=== PATIENT | female | born 1940 | race Caucasian/White ===

== ENCOUNTER 2017-12-07 16:49 | Emergency (ER) | payer MEDICARE, MEDICAID ==
--- NOTE | 2017-12-07 17:41 | UC ---
Abdominal Pain Female HPI - HPI Summary HPI Summary: This nice Bosnian lady comes to the urgent care today with her daughter. [employer] i-pad was used, for patient's confidentiality, the daughter understands the good amount of Turkish but she is not 100% with medical terminology. Patient reports night sweats and fatigue 7-10 pound weight loss and insomnia. Patient reports symptoms are worse last night than they had been in the past. Patient has seen her primary care doctor for this in the past, at [place] and no definitive diagnosis was made per the daughter via the plant buyer. - History of Current Complaint Chief Complaint: UCAbdominalPain Stated Complaint: ABDOMINAL COMPLAINT Time Seen by Provider: 12/07/17 17:30 Hx Obtained From: Patient, Family/Manager Home, Employment Coordinator ?: No Onset/Duration: Gradual Onset, Still Present, Worse Since - Last night Timing: Constant Pain Intensity: 0 Aggravating Factor(s): Nothing Alleviating Factor(s): Nothing Associated Signs and Symptoms: Positive: Negative Allergies/Adverse Reactions: Allergies Allergy/AdvReac Type Severity Reaction Status Date / Time No Known Allergies Allergy Verified 12/07/17 17:10 Home Medications: Home Medications Amlodipine Besylate [Norvasc] 10 mg PO DAILY 12/07/17 [History Confirmed ] Aspirin [Aspirin EC] 81 mg PO DAILY 12/07/17 [History Confirmed 12/07/17] Atenolol 25 mg PO DAILY 12/07/17 [History Confirmed 12/07/17] Brimonid/Timolol 0.2/0.5%(NF) [Combigan 0.2/0.5% (NF)] 1 rayne OP DAILY 12/07/17 [ History Confirmed 12/07/17] Calcium Carbonate [Calcium] 500 mg PO 12/07/17 [History] Hydrocodone/Acetaminophen [Hydrocodone Bitartrate/AC] 1 tab PO Q6H PRN 12/07/17 [History Confirmed 12/07/17] Lisinopril 40 mg PO DAILY 12/07/17 [History Confirmed 12/07/17] Multivitamin [Multivitamins] 1 cap PO DAILY 12/07/17 [History Confirmed 12/07/17 ] Omeprazole CAP* [Prilosec CAP* 20 MG] 20 mg PO DAILY 12/07/17 [History Confirmed 12/07/17] Rosuvastatin (NF) [Crestor (NF)] 20 mg PO QPM 12/07/17 [History Confirmed ] Jenkins Eye Drops 1 drop .SEE ORDER DAILY 12/07/17 [History] PMH/Surg Hx/FS Hx/Imm Hx Previously Healthy: No - Sciatica Endocrine History: Dyslipidemia Cardiovascular History: Hypertension GI/ History: Gastroesophageal Reflux - Surgical History Surgical History: None - Family History Known Family History: Positive: None - Social History Occupation: Retired Lives: With Family Alcohol Use: None Substance Use Type: None Smoking Status (MU): Never Smoked Tobacco Household Exposure Type: Cigarettes - Immunization History Most Recent Influenza Vaccination: season Review of Systems Constitutional: Chills, Fatigue Skin: Negative Eyes: Negative ENT: Negative Respiratory: Negative Cardiovascular: Negative Gastrointestinal: Negative Genitourinary: Negative Motor: Negative Neurovascular: Negative Musculoskeletal: Negative Neurological: Negative Psychological: Negative Is Patient Immunocompromised?: No All Other Systems Reviewed And Are Negative: Yes Physical Exam Triage Information Reviewed: Yes Appearance: Well-Appearing, No Pain Distress, Well-Nourished Vital Signs: Initial Vital Signs Temp 98.0 F 12/07/17 17:04 Pulse 70 12/07/17 17:04 Resp 18 12/07/17 17:04 BP 152/78 12/07/17 17:04 Pulse Ox 99 12/07/17 17:04 Vital Signs Reviewed: Yes Eye Exam: Normal Eyes: Positive: Conjunctiva Clear ENT Exam: Normal ENT: Positive: Normal ENT inspection, Hearing grossly normal, Pharynx normal, TMs normal, Uvula midline. Negative: Nasal congestion, Trismus, Muffled voice, Hoarse voice, Dental tenderness, Sinus tenderness Dental Exam: Normal Neck exam: Normal Neck: Positive: Supple, Nontender, No Lymphadenopathy Respiratory Exam: Normal Respiratory: Positive: Chest non-tender, Lungs clear, Normal breath sounds, No respiratory distress, No accessory muscle use Cardiovascular Exam: Normal Cardiovascular: Positive: RRR, No Murmur, Pulses Normal, Brisk Capillary Refill Abdominal Exam: Normal Abdomen Description: Positive: Nontender, No Organomegaly, Soft. Negative: CVA Tenderness (R), CVA Tenderness (L) Bowel Sounds: Positive: Present Musculoskeletal Exam: Normal Musculoskeletal: Positive: Strength Intact, ROM Intact, No Edema Neurological Exam: Normal Neurological: Positive: Alert, Muscle Tone Normal Psychological Exam: Normal Psychological: Positive: Normal Response To Family Skin Exam: Normal Diagnostics - Radiology No standard instances Radiology Interpretation Completed By: Radiologist - Patient Name: ROBBIE LANZA Medical Record#: [id number] Ordering Physician: Vanessa Bowens NP Acct.#: [id number] : 1940 Age: 77 Sex: F Location: [facility] Exam Date: 12/07/171755 ADM Status: REG ER Order Information: CHEST PA & LAT 2 VWS Accession Number: [id number] CPT: 91615 HISTORY: Weight loss, night sweats COMPARISONS: None VIEWS: 4: Frontal dual-energy and lateral views of the chest. FINDINGS: CARDIOMEDIASTINAL SILHOUETTE: The cardiomediastinal silhouette is normal. VICK: The vick are normal. PLEURA: The costophrenic angles are sharp. No pleural abnormalities are noted. LUNG PARENCHYMA: The lungs are clear. ABDOMEN: The upper abdomen is clear. There is no subphrenic gas. BONES AND SOFT TISSUES: Mild degenerative changes are noted. OTHER: None. IMPRESSION: NO ACTIVE CARDIOPULMONARY DISEASE. <Electronically signed by Kai Randolph MD in [place]> 12/07/171835 Dictated By: Kai Randolph MD Dictated Date/Time: 1835 Transcribed Date/Time: 12/07/171835 Copy to: CC:Vanessa Bowens NP; Alvina De La O MD; Aden Werner MD Imaging - [facility] Imaging - [facility] [address] [place] [address] ph [phone]) ph [phone]) ph [phone]) 1 of 1 - EKG Cardiac Rate: NL Cardiac Rhythm: Sinus: Normal Ectopy: None ST Segment: Normal Abd Pain Female Course/Dx - Course Course Of Treatment: Reviewed options with the patient. Suggested she go home rest follow with Dr. enedelia Reyes up in the morning. Patient feels that she cannot tolerate another sleepless night wishes to go to the emergency department patient will be going to the emergency department by private car with her daughter driving for further assessment and evaluation - Differential Dx/Diagnosis Provider Diagnoses: Weight loss fatigue night sweats, Discharge - Sign-Out/Discharge Documenting (check all that apply): Discharge/Admit/Transfer - Discharge Plan Condition: Stable Disposition: HOME Patient Education Materials: Insomnia (ED), Fatigue (ED) Referrals: Alvina De La O MD [Primary Care Provider] - 1 Day - Billing Disposition and Condition Condition: STABLE Disposition: HOME
--- NOTE | 2017-12-07 18:39 | RAD ---
HISTORY: Weight loss, night sweats COMPARISONS: None VIEWS: 4: Frontal dual-energy and lateral views of the chest. FINDINGS: CARDIOMEDIASTINAL SILHOUETTE: The cardiomediastinal silhouette is normal. HELEN: The helen are normal. PLEURA: The costophrenic angles are sharp. No pleural abnormalities are noted. LUNG PARENCHYMA: The lungs are clear. ABDOMEN: The upper abdomen is clear. There is no subphrenic gas. BONES AND SOFT TISSUES: Mild degenerative changes are noted. OTHER: None. IMPRESSION: NO ACTIVE CARDIOPULMONARY DISEASE.
[2017-12-07 19:10] VITALS: BP 163/83
== END 2017-12-07 19:10 | disposition home or self-care (01) ==
LOC: UCEAST 16:49
DX: R63.4 Abnormal weight loss (principal); R53.83 Other fatigue; R61 Generalized hyperhidrosis; I10 Essential (primary) hypertension; K21.9 Gastro-esophageal reflux disease without esophagitis
CPT/HCPCS: 71046; 81003; 87086; 93005; 99212; G0463

== ENCOUNTER 2017-12-07 19:45 | Emergency (ER) | payer MEDICARE, MEDICAID ==
[2017-12-07] MEDS ORDERED: NS 0.9% 1000 ML* 1,000 ML IV ONE (22:19)
[2017-12-07 22:38] LABS: ABS Basophils 0.1 10^3/ul (0-0.2); ABS Eosinophils 0.2 10^3/ul (0-0.6); ABS Lymphocytes 3.1 10^3/ul (1.0-4.8); ABS Monocytes 0.6 10^3/ul (0-0.8); ABS Neutrophils 3.8 10^3/ul (1.5-7.7); ABS Nucleated RBC 0 10^3/ul; Hematocrit 39 % (35-47); Hemoglobin 12.9 g/dl (12.0-16.0); Lymphocyte % 40.3 % (25-47); Mean Corpuscular HGB Conc 33 g/dl (31-36); Mean Corpuscular Hemoglobin 30 pg (27-31); Mean Corpuscular Volume 90 fL (80-97); Mean Platelet Volume 8.5 um3 (7.4-10.4); Nucleated Red Blood Cells % 0; Platelet Count 221 10^3/ul (150-450); Red Blood Count 4.37 10^6/ul (4.0-5.4); Red Cell Distribution Width 14 % (10.5-15); White Blood Count 7.7 10^3/ul (3.5-10.8)
[2017-12-07 22:56] LABS: EGFR Non-African American 59.8 (>60)
[2017-12-07] MEDS ORDERED: Iodixanol* (CONTRAST) 320 MG/ML 100 ML SDV IV ONE (23:39)
[2017-12-08 00:44] LABS: INR 0.97 (0.77-1.02)
[2017-12-08 00:46] LABS: Urine Appearance Clear; Urine Blood Negative (Negative); Urine Color Straw; Urine Ketones Negative (Negative); Urine Protein Negative (Negative); Urine Specific Gravity 1.006 (1.010-1.030); Urine Urobilinogen Negative (Negative)
--- NOTE | 2017-12-08 01:35 | ED ---
Colby Ellington Tiffany, scribelizabeth for Morris Martin MD on 12/07/17 at 2201 . Complex/Multi-Sys Presentation - HPI Summary HPI Summary: 77 [facility] of nighttime sweats since 3 months ago, worse since 10 days ago. Pt's daughter delivers HPI because pt does not speak Kyrgyz. Symptoms aggravated and alleviated by nothing. Reports decreased appetite, weakness, recent weight loss (6 lbs in 1 month). Denies vomiting, cough, fever. Pt has been to her PCP at [place] for these symptoms, who has done bloodwork, CXR, PPD test (negative in Jul 2017). - History Of Current Complaint Chief Complaint: EDGeneral Time Seen by Provider: 12/07/17 21:34 Hx Obtained From: Family/Engrosser - Daughter Onset/Duration: Lasting Weeks - 3 months, Still Present, Worse Since - 10 days Aggravating Factor(s): Nothing Alleviating Factor(s): Nothing Associated Signs And Symptoms: Positive: Other - decreased appetite, weakness, recent weight loss (6 lbs in 1 month); NEGATIVE: vomiting, cough, fever - Allergies/Home Medications Allergies/Adverse Reactions: Allergies Allergy/AdvReac Type Severity Reaction Status Date / Time No Known Allergies Allergy Verified 12/07/17 21:48 Home Medications: Home Medications Calcium Carbonate TAB* 1,250 mg PO DAILY 12/07/17 [History Confirmed 12/07/17] PMH/Surg Hx/FS Hx/Imm Hx Previously Healthy: No Endocrine/Hematology History: Denies: Hx Diabetes, Hx Thyroid Disease Cardiovascular History: Reports: Hx Hypertension Respiratory History: Denies: Hx Asthma, Hx Chronic Obstructive Pulmonary Disease (COPD) GI History: Denies: Hx Ulcer - Surgical History Surgery Procedure, Year, and Place: None Infectious Disease History: No Infectious Disease History: Denies: Hx Clostridium Difficile, Hx Hepatitis, Hx Human Immunodeficiency Virus (HIV), Hx of Known/Suspected MRSA, Hx Shingles, Hx Tuberculosis, Hx Known/ Suspected VRE, Hx Known/Suspected VRSA, History Other Infectious Disease, Traveled Outside the [place] in Last 30 Days - Family History Known Family History: Positive: Other - Reviewed and non-contributory - Social History Alcohol Use: None Hx Substance Use: No Substance Use Type: Reports: None Hx Tobacco Use: No Smoking Status (MU): Never Smoked Tobacco Review of Systems Positive: Skin Diaphoresis - At night. Negative: Fever Negative: Cough Positive: Abdominal Pain - Lower right, Other - Decreased appetite, recent weight loss. Negative: Vomiting Positive: Weakness All Other Systems Reviewed And Are Negative: Yes Physical Exam - Summary Physical Exam Summary: VITAL SIGNS: Reviewed. GENERAL: Patient is a well-developed and nourished female who is lying comfortable in the stretcher. Patient is not in any acute respiratory distress. HEAD AND FACE: No signs of trauma. No ecchymosis, hematomas or skull depressions. No sinus tenderness. EYES: PERRLA, EOMI x 2, No injected conjunctiva, no nystagmus. EARS: Hearing grossly intact. Ear canals and tympanic membranes are within normal limits. MOUTH: Oropharynx within normal limits. NECK: Supple, trachea is midline, no adenopathy, no JVD, no carotid bruit, no c- spine tenderness, neck with full ROM. CHEST: Symmetric, no tenderness at palpation LUNGS: Clear to auscultation bilaterally. No wheezing or crackles. CVS: Regular rate and rhythm, S1 and S2 present, no murmurs or gallops appreciated. ABDOMEN: Soft, non-tender. No signs of distention. No rebound no guarding, and no masses palpated. Bowel sounds are normal. EXTREMITIES: FROM in all major joints, no edema, no cyanosis or clubbing. NEURO: Alert and oriented x 3. No acute neurological deficits. Speech is normal and follows commands. SKIN: Dry and warm Triage Information Reviewed: Yes Vital Signs On Initial Exam: Initial Vitals Temp Pulse Resp BP Pulse Ox 97.6 F 62 20 165/86 96 12/07/17 19:51 12/07/17 19:51 12/07/17 19:51 12/07/17 19:51 12/07/17 19:51 Vital Signs Reviewed: Yes Diagnostics - Vital Signs Vital Signs Temp Pulse Resp BP Pulse Ox 12/07/17 19:51 97.6 F 62 20 165/86 96 - Laboratory Result Diagrams: 12/07/17 22:27 12/07/17 22:27 Lab Statement: Any lab studies that have been ordered have been reviewed, and results considered in the medical decision making process. - CT Chest/Abd/Pel CT Interpretation Completed By: Radiologist - No localizing signs for acute pathology. Mild bilateral renal scarring. Early porcelain gallbladder. ED physician has reviewed this report. - EKG 22:47 Cardiac Rate: NL - 70 BPM EKG Rhythm: Sinus Rhythm EKG Interpretation: Normal axis. Normal interval. No ischemic changes Re-Evaluation - Re-Evaluation First Eval Re-Evaluation Time: 00:04 Change: Improved Comment: Pt informed of imaging results, and is feeling better to be discharged. Complex Multi-Symp Course/Dx Course Of Treatment: 77 y/o F referred from Urgent Care to [facility] complains of nighttime sweats since 3 months ago, worse since 10 days ago. Imaging, bloodwork , UA obtained. Pt will be discharged with followup from primary care provider. - Diagnoses Provider Diagnoses: Weakness Discharge - Sign-Out/Discharge Documenting (check all that apply): Discharge/Admit/Transfer - Discharge Plan Condition: Stable Disposition: HOME Patient Education Materials: Weakness (ED) Referrals: Alvina De La O MD [Primary Care Provider] - 2 Days Additional Instructions: Follow up with your primary care provider in 1-2 days. Return to the Emergency Department for any new or worsening symptoms. The documentation as recorded by the Colby lagunas Tiffany accurately reflects the service I personally performed and the decisions made by , Morris Martin MD.
[2017-12-08 01:56] VITALS: BP 129/72
--- NOTE | 2017-12-08 08:02 | RAD ---
INDICATION: Fever. COMPARISON: Comparison is made with a prior chest x-ray study from December 07, 2017. TECHNIQUE: A CT scan of the chest, abdomen and pelvis was performed with intravenous and without oral contrast following intravenous injection of 75 ml of Visipaque 320 nonionic contrast. Contiguous axial sections were obtained from the lung apices through the symphysis pubis. Images were reconstructed in the coronal and sagittal planes. FINDINGS: There is mild dependent bilateral lower lobe infiltrates most consistent with atelectasis. The lungs are otherwise clear. No pleural effusion is seen. No significant enlarged mediastinal or hilar lymph nodes are seen. There are coronary artery calcifications. The heart is within normal limits in size. No pericardial effusion is present. The thoracic aorta is normal in caliber. There is mild to moderate calcific plaque present. There is homogeneous opacification of the aorta. No dissection is present. The liver and spleen are normal in size. There are couple small hepatic calcifications possibly representing granulomas. No other focal abnormality is seen. No calcified gallstones are seen noted. There is faint calcification within the gallbladder wall suggestive of an early porcelain gallbladder. There is diffuse fatty infiltration of the pancreas. The adrenal glands are normal in size. There is mild bilateral renal cortical thinning and scarring. No hydronephrosis is seen. There are several small subcentimeter renal cysts present. The aorta is normal in caliber and there is moderate calcific plaque present. No significant enlarged retroperitoneal lymph nodes are seen. There is a small hiatal hernia. The stomach, small and large bowel appear nondistended. The appendix appears to be within normal limits. There are scattered diverticuli within the colon. There is no evidence for diverticulitis or colitis. There is a small umbilical hernia containing fat. The uterus is anteverted and normal in size. No free intraperitoneal air or fluid is seen. No abscess is seen. There is a mild chronic appearing compression fracture of the T12 vertebral body. No other focal osseous abnormalities are seen. IMPRESSION: 1. NO EVIDENCE FOR ACUTE FINDING. 2. MILD BILATERAL RENAL SCARRING. 3. EARLY PORCELAIN GALLBLADDER.
== END 2017-12-08 01:50 | disposition home or self-care (01) ==
LOC: ED 19:45
DX: R53.1 Weakness (principal); K82.8 Other specified diseases of gallbladder; N28.89 Other specified disorders of kidney and ureter; N28.1 Cyst of kidney, acquired; K44.9 Diaphragmatic hernia without obstruction or gangrene; K57.30 Diverticulosis of large intestine without perforation or abscess without bleeding; R91.8 Other nonspecific abnormal finding of lung field; R63.4 Abnormal weight loss; R53.83 Other fatigue; R61 Generalized hyperhidrosis; I10 Essential (primary) hypertension; K21.9 Gastro-esophageal reflux disease without esophagitis
CPT/HCPCS: 36415; 71260; 74177; 80053; 81003; 84443; 84484; 85025; 85610; 85730; 86140; 87086; 93005; 96360; 99284; Q9967

== ENCOUNTER 2017-12-26 12:26 | Emergency (ER) | payer MEDICARE, MEDICAID ==
[2017-12-26] MEDS ORDERED: NS 0.9% 1000 ML* 1,000 ML IV ONE (14:11)
[2017-12-26 14:29] LABS: ABS Basophils 0.1 10^3/ul (0-0.2); ABS Eosinophils 0 10^3/ul (0-0.6); ABS Lymphocytes 2.1 10^3/ul (1.0-4.8); ABS Monocytes 0.5 10^3/ul (0-0.8); ABS Neutrophils 6.4 10^3/ul (1.5-7.7); ABS Nucleated RBC 0 10^3/ul; Eosinophil % 0.2 % (0-6); Hematocrit 39 % (35-47); Hemoglobin 13.1 g/dl (12.0-16.0); Lymphocyte % 22.7 % (25-47); Mean Corpuscular HGB Conc 34 g/dl (31-36); Mean Corpuscular Hemoglobin 30 pg (27-31); Mean Corpuscular Volume 89 fL (80-97); Mean Platelet Volume 8.3 um3 (7.4-10.4); Nucleated Red Blood Cells % 0; Platelet Count 257 10^3/ul (150-450); Red Blood Count 4.35 10^6/ul (4.00-5.40); Red Cell Distribution Width 14 % (10.5-15); White Blood Count 9.1 10^3/ul (3.5-10.8)
[2017-12-26 14:44] LABS: EGFR Non-African American 61.3 (>60)
[2017-12-26 15:31] LABS: Urine Appearance Clear; Urine Blood Negative (Negative); Urine Color Yellow; Urine Ketones Negative (Negative); Urine Protein Negative (Negative); Urine Red Blood Cell Trace(0-2/hpf) (Absent); Urine Specific Gravity 1.006 (1.010-1.030); Urine Urobilinogen Negative (Negative); Urine White Blood Cell Trace(0-5/hpf) (Absent)
[2017-12-26 17:04] VITALS: BP 146/74
--- NOTE | 2017-12-26 17:46 | ED ---
Adán Ellington Tenzin, scribed for Shane Adamson MD on 12/26/17 at 1410 . Abdominal Pain/Female - HPI Summary HPI Summary: Pt is a 77 years old female presenting to the ED complaining of severe pain in right upper abdomen last night. Pt rates the pain at 4/10 in severity and describes it as sharp pain. No radiation of pain was noted. She is also complaining of feeling nauseous, malaise and bad sweats with intermittent hot flashes lasting about 10 mins for the last few days. No aggravating and alleviating factors were noted. Pt was noted to have loss of appetite and trouble sleeping over the last two days. Pt took Vicodin today at 10:00 for the pain. She was here in the ED for the similar complaints on Dec 07 2017. - History of Current Complaint Chief Complaint: EDAbdPain Stated Complaint: ABD PAIN Time Seen by Provider: 12/26/17 13:53 Hx Obtained From: Patient, Family/Analytics Intern - daughter was the barrel charrer helper. Onset/Duration: Lasting Days - last few days. Timing: Intermittent Episode Lasting - 10 mins. Severity Initially: Moderate Severity Currently: Moderate Pain Intensity: 4 Pain Scale Used: 0-10 Numeric Location: Discrete At: RUQ Radiates: No Character: Sharp Aggravating Factor(s): Nothing Alleviating Factor(s): Nothing Associated Signs and Symptoms: Positive: Decreased Appetite, Nausea, Other: - Malaise, hot flashes and night sweats intermittently, trouble sleeping. Allergies/Adverse Reactions: Allergies Allergy/AdvReac Type Severity Reaction Status Date / Time No Known Allergies Allergy Verified 12/26/17 12:36 Home Medications: Home Medications ALPRAZolam TAB* [Xanax TAB*] 0.25 mg PO Q6H PRN 12/26/17 [History Confirmed ] Alendronate (NF) [Fosamax (NF)] 70 mg PO WEEKLY 12/26/17 [History Confirmed ] Aspirin EC TAB* [Ecotrin EC Low Dose 81 MG*] 81 mg PO DAILY 12/26/17 [History Confirmed 12/26/17] Atenolol TAB* [Tenormin TAB* 25 MG] 25 mg PO DAILY 12/26/17 [History Confirmed 12/26/17] Cholecalciferol TAB* [Vitamin D TAB*] 1,000 unit PO DAILY 12/26/17 [History Confirmed 12/26/17] Gabapentin CAP(*) [Neurontin 300 CAP(*)] 300 mg PO TID 12/26/17 [History Confirmed 12/26/17] HYDROcodone/ACETAMIN 5-325 MG* [[place] 5-325 TAB*] 1 tab PO Q6H PRN 12/26/17 [ History Confirmed 12/26/17] Lisinopril TAB* [Prinivil TAB*] 40 mg PO DAILY 12/26/17 [History Confirmed 12/26] Multivitamins/Minerals TAB* [Theragran/minerals TAB*] 1 tab PO DAILY 12/26/17 [ History Confirmed 12/26/17] Omeprazole CAP* [Prilosec CAP* 20 MG] 20 mg PO DAILY 12/26/17 [History Confirmed 12/26/17] Rosuvastatin (NF) [Crestor (NF)] 20 mg PO DAILY 12/26/17 [History Confirmed ] Sertraline* [Zoloft*] 50 mg PO DAILY 12/26/17 [History Confirmed 12/26/17] amLODIPine TAB* [Norvasc 5 mg TAB*] 10 mg PO DAILY 12/26/17 [History Confirmed 12/26/17] PMH/Surg Hx/FS Hx/Imm Hx Endocrine/Hematology History: Denies: Hx Diabetes, Hx Thyroid Disease Cardiovascular History: Reports: Hx Hypertension Respiratory History: Denies: Hx Asthma, Hx Chronic Obstructive Pulmonary Disease (COPD) GI History: Denies: Hx Ulcer History: Denies: Hx Renal Disease - Surgical History Surgery Procedure, Year, and Place: None Infectious Disease History: No Infectious Disease History: Denies: Hx Clostridium Difficile, Hx Hepatitis, Hx Human Immunodeficiency Virus (HIV), Hx of Known/Suspected MRSA, Hx Shingles, Hx Tuberculosis, Hx Known/ Suspected VRE, Hx Known/Suspected VRSA, History Other Infectious Disease, Traveled Outside the [place] in Last 30 Days - Family History Known Family History: Positive: None, Other - Reviewed and non-contributory - Social History Alcohol Use: None Hx Substance Use: No Substance Use Type: Reports: None Hx Tobacco Use: No Smoking Status (MU): Never Smoked Tobacco Review of Systems Positive: Other - Hot flashes and night sweats intermittently, Malaise. Positive: Abdominal Pain - RUQ, Nausea All Other Systems Reviewed And Are Negative: Yes Physical Exam - Summary Physical Exam Summary: Appearance: The patient is well-nourished in no acute distress and in no acute pain. Skin: The skin is warm and dry and skin color reflects adequate perfusion. HEENT: The head is normocephalic and atraumatic. The pupils are equal and reactive. The conjunctivae are clear and without drainage. Nares are patent and without drainage. Mouth reveals moist mucous membranes and the throat is without erythema and exudate. The external ears are intact. The ear canals are patent and without drainage. The tympanic membranes are intact. Neck: the neck is supple with full range of motion and non-tender. There are no carotid bruits. There is no neck vein distension. Respiratory: Chest is non-tender. Lungs are clear to auscultation and breath sounds are symmetrical and equal. Cardiovascular: Heart is regular rate and rhythm. There is no murmur or rub auscultated. There is no peripheral edema and pulses are symmetrical and equal. Abdomen: The abdomen is non-tender. There are normal bowel sounds heard in all four quadrants and there is no organomegaly palpated. Musculoskeletal: There is no back tenderness noted. Extremities are non-tender with full range of motion. There is good capillary refill. There is no peripheral edema or calf tenderness elicited. Neurological: Patient is alert and oriented to person, place and time. The patient has symmetrical motor strength in all four extremities. Cranial nerves are grossly intact. Deep tendon reflexes are symmetrical and equal in all four extremities. Psychiatric: The patient has an appropriate affect and does not exhibit any anxiety or depression. Triage Information Reviewed: Yes Vital Signs On Initial Exam: Initial Vitals Temp Pulse Resp BP Pulse Ox 98.4 F 76 15 134/78 95 12/26/17 12:29 12/26/17 12:29 12/26/17 12:29 12/26/17 12:29 12/26/17 12:29 Vital Signs Reviewed: Yes Appearance: Positive: Ill-Appearing Diagnostics - Vital Signs Vital Signs Temp Pulse Resp BP Pulse Ox 12/26/17 12:29 98.4 F 76 15 134/78 95 - Laboratory Lab Results: Lab Results 12/26/17 12/26/17 12/26/17 Range/Units 14:19 14:20 14:20 WBC 9.1 (3.5-10.8) 10^3/ul RBC 4.35 (4.00-5.40) 10^6/ul Hgb 13.1 (12.0-16.0) g/dl Hct 39 (35-47) % MCV 89 (80-97) fL MCH 30 (27-31) pg MCHC 34 (31-36) g/dl RDW 14 (10.5-15) % Plt Count 257 (150-450) 10^3/ul MPV 8.3 (7.4-10.4) um3 Neut % (Auto) 70.4 (38-83) % Lymph % (Auto) 22.7 L (25-47) % [place] % (Auto) 5.9 (0-7) % Eos % (Auto) 0.2 (0-6) % Baso % (Auto) 0.8 (0-2) % Absolute Neuts (auto) 6.4 (1.5-7.7) 10^3/ul Absolute Lymphs (auto) 2.1 (1.0-4.8) 10^3/ul Absolute Monos (auto) 0.5 (0-0.8) 10^3/ul Absolute Eos (auto) 0 (0-0.6) 10^3/ul Absolute Basos (auto) 0.1 (0-0.2) 10^3/ul Absolute Nucleated RBC 0 10^3/ul Nucleated RBC % 0 Sodium 138 (135-145) mmol/L Potassium 3.8 (3.5-5.0) mmol/L Chloride 106 (101-111) mmol/L Carbon Dioxide 24 (22-32) mmol/L Anion Gap 8 (2-11) mmol/L BUN 18 (6-24) mg/dL Creatinine 0.89 (0.51-0.95) mg/dL Est GFR ( Amer) 78.9 (>60) Est GFR (Non-Af Amer) 61.3 (>60) BUN/Creatinine Ratio 20.2 H (8-20) Glucose 157 H (70-100) mg/dL Lactic Acid 1.3 (0.5-2.0) mmol/L Calcium 9.6 (8.6-10.3) mg/dL Total Bilirubin 0.40 (0.2-1.0) mg/dL AST 21 (13-39) U/L ALT 18 (7-52) U/L Alkaline Phosphatase 50 (34-104) U/L C-Reactive Protein 2.54 (< 5.00) mg/L Total Protein 6.7 (6.4-8.9) g/dL Albumin 4.1 (3.2-5.2) g/dL Globulin 2.6 (2-4) g/dL Albumin/Globulin Ratio 1.6 (1-3) Lipase 11 (11.0-82.0) U/L Urine Color Urine Appearance Urine pH (5-9) Ur Specific [place] (1.010-1.030) Urine Protein (Negative) Urine Ketones (Negative) Urine Blood (Negative) Urine Nitrate (Negative) Urine Bilirubin (Negative) Urine Urobilinogen (Negative) Ur Leukocyte Esterase (Negative) Urine WBC (Auto) (Absent) Urine RBC (Auto) (Absent) Ur Squamous Epith Cells (Absent) Urine Bacteria (Absent) Urine Glucose (Negative) 12/26/17 Range/Units 15:10 WBC (3.5-10.8) 10^3/ul RBC (4.00-5.40) 10^6/ul Hgb (12.0-16.0) g/dl Hct (35-47) % MCV (80-97) fL MCH (27-31) pg MCHC (31-36) g/dl RDW (10.5-15) % Plt Count (150-450) 10^3/ul MPV (7.4-10.4) um3 Neut % (Auto) (38-83) % Lymph % (Auto) (25-47) % [place] % (Auto) (0-7) % Eos % (Auto) (0-6) % Baso % (Auto) (0-2) % Absolute Neuts (auto) (1.5-7.7) 10^3/ul Absolute Lymphs (auto) (1.0-4.8) 10^3/ul Absolute Monos (auto) (0-0.8) 10^3/ul Absolute Eos (auto) (0-0.6) 10^3/ul Absolute Basos (auto) (0-0.2) 10^3/ul Absolute Nucleated RBC 10^3/ul Nucleated RBC % Sodium (135-145) mmol/L Potassium (3.5-5.0) mmol/L Chloride (101-111) mmol/L Carbon Dioxide (22-32) mmol/L Anion Gap (2-11) mmol/L BUN (6-24) mg/dL Creatinine (0.51-0.95) mg/dL Est GFR ( Amer) (>60) Est GFR (Non-Af Amer) (>60) BUN/Creatinine Ratio (8-20) Glucose (70-100) mg/dL Lactic Acid (0.5-2.0) mmol/L Calcium (8.6-10.3) mg/dL Total Bilirubin (0.2-1.0) mg/dL AST (13-39) U/L ALT (7-52) U/L Alkaline Phosphatase (34-104) U/L C-Reactive Protein (< 5.00) mg/L Total Protein (6.4-8.9) g/dL Albumin (3.2-5.2) g/dL Globulin (2-4) g/dL Albumin/Globulin Ratio (1-3) Lipase (11.0-82.0) U/L Urine Color Yellow Urine Appearance Clear Urine pH 6.0 (5-9) Ur Specific [place] 1.006 L (1.010-1.030) Urine Protein Negative (Negative) Urine Ketones Negative (Negative) Urine Blood Negative (Negative) Urine Nitrate Negative (Negative) Urine Bilirubin Negative (Negative) Urine Urobilinogen Negative (Negative) Ur Leukocyte Esterase 1+ A (Negative) Urine WBC (Auto) Trace(0-5/hpf) (Absent) Urine RBC (Auto) Trace(0-2/hpf) (Absent) Ur Squamous Epith Cells Present A (Absent) Urine Bacteria Absent (Absent) Urine Glucose Negative (Negative) Result Diagrams: 12/26/17 14:20 12/26/17 14:19 Lab Statement: Any lab studies that have been ordered have been reviewed, and results considered in the medical decision making process. Abdominal Pain Fem Course/Dx - Course Course Of Treatment: Ms. Rodriguez was brought to the emergency department by her daughter who translates for her. She was here in the emergency department a week or so ago and got off CT scan of her chest abdomen and pelvis. Since that time she has been having episodes of sudden diaphoresis and nausea and which is occasionally accompanied by a sharp right upper quadrant pain. She is not experiencing the symptoms at this time. Her exam was unremarkable. Labs were obtained and were within normal limits. 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 I recommended follow-up with surgery for definitive treatment. In the meantime I recommended the use of tramadol for her pain. - Diagnoses Provider Diagnoses: Biliary colic Discharge - Sign-Out/Discharge Documenting (check all that apply): Discharge/Admit/Transfer - discharge - Discharge Plan Condition: Stable Disposition: HOME Prescriptions: traMADol TAB* [Ultram*] 50 mg PO Q6HR PRN #20 tab MDD 4 PRN Reason: Pain Patient Education Materials: Biliary Colic (ED) Referrals: Alvina De La O MD [Primary Care Provider] - Ricardo Thomas MD [Medical Doctor] - 3 Days Additional Instructions: Follow up with Dr. Ricardo Thomas, Surgeon in three days. Return to the emergency department for any new or worsening symptoms. - Billing Disposition and Condition Condition: STABLE Disposition: Home The documentation as recorded by the Adán lagunas Tenzin accurately reflects the service I personally performed and the decisions made by me, Shane Adamson MD.
== END 2017-12-26 17:05 | disposition home or self-care (01) ==
LOC: ED 12:26
DX: K80.50 Calculus of bile duct without cholangitis or cholecystitis without obstruction (principal); I10 Essential (primary) hypertension; Z79.82 Long term (current) use of aspirin
CPT/HCPCS: 36415; 80053; 81003; 81015; 83605; 83690; 85025; 86140; 87086; 96360; 99283

== ENCOUNTER 2018-10-06 09:27 | Emergency (ER) | payer MEDICARE, MEDICAID ==
--- NOTE | 2018-10-06 10:24 | UC ---
Abdominal Pain Female HPI - HPI Summary HPI Summary: PATIENT ARRIVES ACCOMPANIED BY HER DAUGHTER GREEN TIRE INSPECTOR. HAS HAD LONG- STANDING PROBLEMS WITH ABDOMINAL PAIN AND BACK PAIN OVER THE PAST MORE THAN ONE YEAR. DAUGHTER STATES THAT HER SYMPTOMS HAVE BEEN WORSENING OVER THE PAST 3 MONTHS AND HAVE BEEN INTOLERABLE OVER THE PAST 1 WEEK. PATIENT COMPLAINS OF INTENSE SHARP BILATERAL LOWER BACK AND EPIGASTRIC ABDOMINAL PAIN THAT CAUSES HER TO BREAK OUT INTO COLD SWEATS AND CHILLS EVERY FEW MINUTES. APPETITE IS DOWN. PATIENT IS TRYING TO HYDRATE WITH WATER. THIS MORNING STARTED VOMITING. STATES HER STOMACH FEELS BLOATED. NO CLEAR WEIGHT LOSS. - History of Current Complaint Chief Complaint: UCAbdominalPain Stated Complaint: VOMITING Time Seen by Provider: 10/06/18 09:58 Hx Obtained From: Patient, Family/Routing Equipment Tender - DAUGHTER Onset/Duration: Gradual Onset, Lasting Weeks, Still Present, Worse Since - PAST 3 MONTHS Timing: Constant Severity Initially: Moderate Severity Currently: Moderate Pain Intensity: 10 Pain Scale Used: 0-10 Numeric Location: Epigastric Radiates: Yes Radiates to: Back Character: Sharp Aggravating Factor(s): Nothing Alleviating Factor(s): Nothing Associated Signs and Symptoms: Positive: Diaphoresis, Back Pain, Decreased Appetite, Nausea, Vomiting. Negative: Urinary Symptoms, Diarrhea Allergies/Adverse Reactions: Allergies Allergy/AdvReac Type Severity Reaction Status Date / Time No Known Allergies Allergy Verified 10/06/18 09:34 PMH/Surg Hx/FS Hx/Imm Hx Cardiovascular History: Hypertension - Surgical History Surgical History: None Surgery Procedure, Year, and Place: None - Family History Known Family History: Positive: None, Other - Reviewed and non-contributory - Social History Alcohol Use: None Substance Use Type: None Smoking Status (MU): Never Smoked Tobacco Household Exposure Type: Cigarettes - Immunization History Most Recent Influenza Vaccination: season Review of Systems All Other Systems Reviewed And Are Negative: Yes Constitutional: Positive: Chills, Fatigue Skin: Positive: Negative Respiratory: Positive: Negative Cardiovascular: Positive: Negative Gastrointestinal: Positive: Abdominal Pain, Vomiting, Nausea Genitourinary: Positive: Negative Physical Exam Triage Information Reviewed: Yes Appearance: No Pain Distress, Well-Nourished, Ill-Appearing - APPEARS FATIGUED, SLIGHTLY PALE Vital Signs: Initial Vital Signs Temp 98.7 F 10/06/18 09:41 Pulse 97 03/29/19 09:41 Resp 20 10/06/18 09:41 BP 152/90 10/06/18 09:41 Pulse Ox 98 10/06/18 09:41 Vital Signs Reviewed: Yes Eyes: Positive: Conjunctiva Clear ENT: Positive: Hearing grossly normal Neck: Positive: Supple, Nontender, No Lymphadenopathy Respiratory Exam: Normal Cardiovascular: Positive: Tachycardia Abdomen Description: Positive: Soft, Distended, Other: - SLIGHTLY DISTENDED. TTP EPIGASTRIC AREA. NO REBOUND OR RIGIDITY. Negative: CVA Tenderness (R), CVA Tenderness (L), Guarding Bowel Sounds: Positive: Present Musculoskeletal: Positive: No Edema Neurological: Positive: Alert Psychological: Positive: Normal Response To Family, Age Appropriate Behavior Skin: Negative: Rashes Abd Pain Female Course/Dx - Course Course Of Treatment: TO [facility] BY AMBULANCE - Differential Dx/Diagnosis Provider Diagnosis: Epigastric abdominal pain, Nausea & vomiting - Physician Notification/Consults Discussed Care of Patient With: Roque Brown - TO [facility] BY AMBULANCE Time Discussed With Above Provider: 10:40 Instructed by Provider To: MD Will See In ED Discharge - Sign-Out/Discharge Documenting (check all that apply): Patient Departure All imaging exams completed and their final reports reviewed: No Studies - Discharge Plan Condition: Stable Disposition: TRANS HIGHER LVL OF CARE FAC Referrals: Alvina De La O MD [Primary Care Provider] - - Billing Disposition and Condition Condition: STABLE Disposition: Trans Higher Lvl of Care Fac
[2018-10-06] MEDS ORDERED: NS 0.9% 1000 ML** 1,000 ML IV SCH (10:45)
[2018-10-06 10:56] VITALS: BP 186/97
== END 2018-10-06 11:03 | disposition short-term general hospital (02) ==
LOC: UCEAST 09:27
DX: R10.13 Epigastric pain (principal); R11.2 Nausea with vomiting, unspecified; I10 Essential (primary) hypertension; Z77.22 Contact with and (suspected) exposure to environmental tobacco smoke (acute) (chronic)
CPT/HCPCS: 81003; 96361; 99213; G0463

== ENCOUNTER → 2018-10-06 11:15 | Emergency (ER) | payer MEDICARE, MEDICAID ==
[~2018-10-06 11:15] MED LIST: Ibuprofen TAB* 600 MG ONE; Ibuprofen TAB* 600 MG PO ONE; Iodixanol* (CONTRAST) 320 MG/ML 100 ML SDV IV ONE; NS 0.9% 1000 ML** 1,000 ML IV ONE
--- NOTE | 2018-10-06 11:48 | ED ---
Abdominal Pain/Female - HPI Summary HPI Summary: This patient is a 77 year old F brought by EMS from Urgent Care accompanied by a woman with a chief complaint of acute abdominal pain since this morning. They were sent for further evaluation. The patient rates the pain 3/10 in severity. Patient reports chronic nighttime full body diaphoresis, difficulty passing gas , vomiting, chills, decreased appetite, weakness, intermittent fevers, and lower back pain. For the last three years, the patient wakes up at night from pain and diaphoresis. The patient had a BM this morning but cannot pass any gas. The pain and diaphoresis has been the worst over the last three months. The abdominal pain is a new symptom. She was seen at [facility] twice last year but they couldnt find anything wrong with her. Her daughter states that the sweating starts in the patients lower back and she looks like she has been drenched by a bucket of water, and when she changes her clothes she is extremely cold. No PMHx anxiety. Vitals in the room: HR 94 bpm, BP 164/98. - History of Current Complaint Chief Complaint: EDAbdPain Stated Complaint: VOMITING PER FACE SHEET Time Seen by Provider: 10/06/18 11:22 Hx Obtained From: Patient, Family/Claim Taker - daughter Onset/Duration: Sudden Onset Timing: Constant Severity Currently: Mild Pain Intensity: 3 Pain Scale Used: 0-10 Numeric Associated Signs and Symptoms: Positive: Diaphoresis, Fever, Back Pain, Decreased Appetite, Vomiting Allergies/Adverse Reactions: Allergies Allergy/AdvReac Type Severity Reaction Status Date / Time No Known Allergies Allergy Verified 10/06/18 09:34 PMH/Surg Hx/FS Hx/Imm Hx Endocrine/Hematology History: Denies: Hx Diabetes, Hx Thyroid Disease Cardiovascular History: Reports: Hx Hypertension Respiratory History: Denies: Hx Asthma, Hx Chronic Obstructive Pulmonary Disease (COPD) GI History: Denies: Hx Ulcer History: Denies: Hx Renal Disease Psychiatric History: Denies: Hx Anxiety - Surgical History Surgery Procedure, Year, and Place: None Infectious Disease History: No Infectious Disease History: Denies: Hx Clostridium Difficile, Hx Hepatitis, Hx Human Immunodeficiency Virus (HIV), Hx of Known/Suspected MRSA, Hx Shingles, Hx Tuberculosis, Hx Known/ Suspected VRE, Hx Known/Suspected VRSA, History Other Infectious Disease, Traveled Outside the [place] in Last 30 Days - Family History Known Family History: Positive: Other - Reviewed and non-contributory - Social History Alcohol Use: None Hx Substance Use: No Substance Use Type: Reports: None Hx Tobacco Use: No Smoking Status (MU): Never Smoked Tobacco Review of Systems Positive: Fever, Chills, Skin Diaphoresis Positive: Abdominal Pain, Vomiting, Other - difficulty passing gas, decreased appetite Positive: Myalgia - back pain Positive: Weakness All Other Systems Reviewed And Are Negative: Yes Physical Exam - Summary Physical Exam Summary: Appearance: Well appearing, no pain distress Skin: warm, dry, reflects adequate perfusion Head/face: normal Eyes: EOMI, MICAELA ENT: normal Neck: supple, non-tender Respiratory: CTA, breath sounds present Cardiovascular: RRR, pulses symmetrical Abdomen: non-tender, soft Musculoskeletal: normal, strength/ROM intact Neuro: normal, sensory motor intact, A&Ox3 Triage Information Reviewed: Yes Vital Signs On Initial Exam: Initial Vitals Temp Pulse Resp BP Pulse Ox 98.0 F 90 14 180/78 97 10/06/18 11:20 10/06/18 11:20 10/06/18 11:20 10/06/18 11:20 10/06/18 11:20 Vital Signs Reviewed: Yes Diagnostics - Vital Signs Vital Signs Temp Pulse Resp BP Pulse Ox 10/06/18 11:20 98.0 F 90 14 180/78 97 - Laboratory Result Diagrams: 10/06/18 12:01 10/06/18 12:01 Lab Statement: Any lab studies that have been ordered have been reviewed, and results considered in the medical decision making process. - Radiology CXR Radiology Interpretation Completed By: Radiologist Summary of Radiographic Findings: NO ACTIVE CARDIOPULMONARY DISEASE. ED physician has reviewed this report. - CT Abd/Pelvis CT Interpretation Completed By: Radiologist Summary of CT Findings: 1. FATTY INFILTRATION OF THE LIVER. 2. MILD BILIARY DILATATION. 3. ATHEROSCLEROSIS. ED physician has reviewed this report. - EKG 11:55 Cardiac Rate: NL - 88 bpm EKG Rhythm: Sinus Rhythm Summary of EKG Findings: No acute changes Abdominal Pain Fem Course/Dx - Course Course Of Treatment: This patient is a 77 year old F brought by EMS from Urgent Care accompanied by a woman with a chief complaint of acute abdominal pain since this morning. They were sent for further evaluation. The patient rates the pain 3/10 in severity. Patient reports chronic nighttime full body diaphoresis, difficulty passing gas, vomiting, chills, decreased appetite, weakness, intermittent fevers, and lower back pain. For the last three years, the patient wakes up at night from pain and diaphoresis. An EKG reveals NSR 88bpm, no acute changes. CXR reveals, per radiologist, NO ACTIVE CARDIOPULMONARY DISEASE. CT Abd/Pelvis reveals, per radiologist, 1. FATTY INFILTRATION OF THE LIVER. 2. MILD BILIARY DILATATION. 3. ATHEROSCLEROSIS. Bloodwork/UA obtained. In the ED course the patient was given IV fluids, Ibuprofen, and Iodixanol. Patient will be discharged with follow up from Dr. Solo, neurologist. The patient is agreeable with this plan. - Diagnoses Differential Diagnosis: Positive: Diverticulitis, Renal Colic, Urinary Tract Infection Provider Diagnoses: Night sweats, Generalized weakness Discharge - Sign-Out/Discharge Documenting (check all that apply): Patient Departure - discharge Patient Received Moderate/Deep Sedation with Procedure: No - Discharge Plan Condition: Stable Disposition: HOME Patient Education Materials: Weakness (ED) Referrals: Alvina De La O MD [Primary Care Provider] - Carri Solo MD [Medical Doctor] - 3 Days Additional Instructions: Please follow up with Dr. Solo, neurologist, in the next three days. - Billing Disposition and Condition Condition: STABLE Disposition: Home - Attestation Statements Document Initiated by Lennox: Yes Documenting Scribe: Junior Guevara Provider For Whom Lennox is Documenting (Include Credential): Roque Brown MD Scribe Attestation: Junior Ellington, scribed for Roque Brown MD on 10/06/18 at 1551. Scribe Documentation Reviewed: Yes Provider Attestation: The documentation as recorded by the Junior lagunas accurately reflects the service I personally performed and the decisions made by , Roque Brown MD Status of Scribe Document: Viewed
[2018-10-06 12:13] LABS: ABS Basophils 0.1 10^3/ul (0-0.2); ABS Eosinophils 0 10^3/ul (0-0.6); ABS Lymphocytes 1.6 10^3/ul (1.0-4.8); ABS Monocytes 0.3 10^3/ul (0-0.8); ABS Nucleated RBC 0 10^3/ul; Eosinophil % 0.1 %; Hematocrit 40 % (33-41); Hemoglobin 13.5 g/dL (12.0-16.0); Lymphocyte % 22.9 %; Mean Corpuscular HGB Conc 34 g/dL (31-36); Mean Corpuscular Hemoglobin 30 pg (27-31); Mean Corpuscular Volume 90 fL (80-97); Mean Platelet Volume 8.9 fL (7.4-10.4); Nucleated Red Blood Cells % 0.1; Platelet Count 231 10^3/uL (150-450); Red Blood Count 4.48 10^6 /uL (3.70-4.87); Red Cell Distribution Width 14 % (10.5-15); White Blood Count 7.1 10^3/uL (3.5-10.8)
[2018-10-06 12:23] LABS: Activated Partial Thrombo Time 28.7 seconds (26.0-36.3); INR 1.02 (0.77-1.02)
[2018-10-06 12:36] LABS: ALT 18 U/L (7-52); AST 18 U/L (13-39); Albumin 4.3 g/dL (3.2-5.2); Albumin/Globulin Ratio 1.7 (1-3); Alkaline Phosphatase 43 U/L (34-104); Anion Gap 8 mmol/L (2-11); BUN/Creatinine Ratio 25.3 (8-20); Blood Urea Nitrogen 20 mg/dL (6-24); C Reactive Protein < 1.00 mg/L (<8.01); CO2 Carbon Dioxide 24 mmol/L (22-32); Calcium 9.8 mg/dL (8.6-10.3); Chloride 110 mmol/L (101-111); EGFR African American 85.2 (>60); EGFR Non-African American 70.4 (>60); Globulin 2.6 g/dL (2-4); Glucose 125 mg/dL (70-100); Magnesium 1.9 mg/dL (1.9-2.7); Potassium 4.1 mmol/L (3.5-5.0); Sodium 142 mmol/L (135-145); Total Protein 6.9 g/dL (6.4-8.9)
[2018-10-06 13:24] LABS: Influenza A Molecular NEGATIVE (Negative); Influenza B Molecular NEGATIVE (Negative)
[2018-10-06 13:57] LABS: Urine Appearance Clear; Urine Bacteria Absent (Absent); Urine Bilirubin Negative (Negative); Urine Blood Negative (Negative); Urine Color Straw; Urine Glucose Negative (Negative); Urine Ketones Negative (Negative); Urine Nitrite Negative (Negative); Urine Protein Negative (Negative); Urine Red Blood Cell Absent (Absent); Urine Specific Gravity 1.008 (1.010-1.030); Urine Squamous Epithelial Cell Present (Absent); Urine Urobilinogen Negative (Negative); Urine White Blood Cell Trace(0-5/hpf) (Absent)
[2018-10-06 15:40] VITALS: BP 140/81
== END | disposition home or self-care (01) ==
LOC: ED 11:15
DX: R61 Generalized hyperhidrosis (principal); R53.1 Weakness; I10 Essential (primary) hypertension; K76.0 Fatty (change of) liver, not elsewhere classified; I70.90 Unspecified atherosclerosis
CPT/HCPCS: 36415; 71045; 74177; 80053; 81003; 81015; 83605; 83690; 83735; 84484; 85025; 85610; 85730; 86140; 87086; 93005; 96360; 99283; A9270-GY; Q9967

== ENCOUNTER 2019-08-31 09:55 | Inpatient (IN) | payer MEDICARE, MEDICAID ==
[2019-08-31] MEDS ORDERED: NS 0.9% 1000 ML** 1,000 ML IV ONE (10:07)
[2019-08-31 10:19] LABS: ABS Basophils 0.1 10^3/ul (0-0.2); ABS Lymphocytes 1.4 10^3/ul (1.0-4.8); ABS Monocytes 0.5 10^3/ul (0-0.8); ABS Neutrophils 5.9 10^3/ul (1.5-7.7); Eosinophil % 0.4 %; Hematocrit 41 % (35-47); Hemoglobin 13.6 g/dL (12.0-16.0); Lymphocyte % 17.5 %; Mean Corpuscular HGB Conc 34 g/dL (31-36); Mean Corpuscular Hemoglobin 31 pg (27-31); Mean Corpuscular Volume 91 fL (80-97); Mean Platelet Volume 8.4 fL (7.4-10.4); Platelet Count 403 10^3/uL (150-450); Red Blood Count 4.47 10^6 /uL (3.70-4.87); Red Cell Distribution Width 14 % (10-15)
--- NOTE | 2019-08-31 10:19 | ED ---
HPI Chest Pain - HPI Summary HPI Summary: The patient is a 78 y/o F presenting to [facility] accompanied by family with a chief complaint of CP and SOB worsening since 08/28/2019. She reports that she has been suffering from URI symptoms for the last three weeks, but three days ago she developed SOB and CP that has since worsened as she is unable to do her routine activities by herself, such as ambulating and getting dressed. The CP is located in the mid-sternal region and radiates into the upper abdomen. She states she feels like she is drowning, and her family notes changes in her voice. Aching pain is rated 8/10 in severity. There are no aggravating or alleviating factors. She denies any nausea, vomiting, diarrhea, decreased appetite, abdominal pain, edema in the lower extremities, or pain or swelling the calves. No cardiac or respiratory/pulmonology history. No history of DVTs, PEs, or PNA. PMHx: HTN. Nonsmoker, no EtOH, no substance use. Medications reviewed. Allergies noted. - History of Current Complaint Time Seen by Provider: 08/31/19 10:03 Hx Obtained From: Patient Onset/Duration: Started Days Ago, Still Present Timing: Constant Initial Severity: Mild Current Severity: Moderate Pain Intensity: 8 Pain Scale Used: 0-10 Numeric Chest Pain Location: Mid Sternal Chest Pain Radiates: Yes Chest Pain Radiates To:: Other - upper abdomen Character: Dull/Aching Aggravating Factor(s): Nothing Alleviating Factor(s): Nothing Associated Signs and Symptoms: Positive: Chest Pain, Shortness of Breath, Other : - changes in voice. Negative: Nausea, Abdominal Pain, Calf Pain/Swelling, Vomiting, Edema - Allergy/Home Medications Allergies/Adverse Reactions: Allergies Allergy/AdvReac Type Severity Reaction Status Date / Time No Known Allergies Allergy Verified 10/06/18 09:34 Home Medications: Home Medications Alendronate (NF) [Fosamax (NF)] 70 mg PO WEEKLY 12/26/17 [History Confirmed ] Aspirin EC TAB* [Ecotrin EC Low Dose 81 MG*] 81 mg PO DAILY 12/26/17 [History Confirmed 08/31/19] Atenolol TAB* [Tenormin TAB* 25 MG] 25 mg PO DAILY 12/26/17 [History Confirmed 08/31/19] Cholecalciferol TAB* [Vitamin D TAB*] 1,000 unit PO DAILY 12/26/17 [History Confirmed 08/31/19] Gabapentin CAP(*) [Neurontin 300 CAP(*)] 300 mg PO TID 12/26/17 [History Confirmed 08/31/19] HYDROcodone/ACETAMIN 5-325 MG* [[place] 5-325 TAB*] 1 tab PO Q6H PRN MDD 4 tabs [History Confirmed 08/31/19] Lisinopril TAB* [Prinivil TAB 10 MG*] 40 mg PO DAILY 12/26/17 [History Confirmed 08/31/19] Multivitamins/Minerals TAB* [Theragran/minerals TAB*] 1 tab PO DAILY 12/26/17 [ History Confirmed 08/31/19] Omeprazole CAP (NF) [Prilosec CAP* 20 MG] 20 mg PO DAILY 12/26/17 [History Confirmed 08/31/19] amLODIPine TAB* [Norvasc 5 mg TAB*] 10 mg PO DAILY 12/26/17 [History Confirmed 08/31/19] Amoxicillin/Clavulanate TAB* [Augmentin TAB 500 mg*] 500 mg PO BID 08/31/19 [ History Confirmed 08/31/19] Benzonatate CAP* [Tessalon 100 MG CAP*] 100 mg PO TID PRN 08/31/19 [History Confirmed 08/31/19] Codeine Phosphate/Guaifenesin [Guaifen-Codeine 100-10 mg/5 ml] 10 ml PO Q8H PRN MDD 30ml 08/31/19 [History Confirmed 08/31/19] DULoxetine DR CAP* [Cymbalta CAP*] 40 mg PO DAILY 08/31/19 [History Confirmed ] Nut.tx.gluc.intoler,Lac-Fr,Soy [Glucerna] 237 ml PO DAILY 08/31/19 [History Confirmed 08/31/19] traZODone TAB* [Desyrel TAB*] 50 mg PO BEDTIME 08/31/19 [History Confirmed 08/31] PMH/Surg Hx/FS Hx/Imm Hx Endocrine/Hematology History: Denies: Hx Diabetes, Hx Thyroid Disease Cardiovascular History: Reports: Hx Hypertension Denies: Hx Deep Vein Thrombosis Respiratory History: Denies: Hx Asthma, Hx Chronic Obstructive Pulmonary Disease (COPD), Hx Pneumonia, Hx Pulmonary Embolism GI History: Denies: Hx Ulcer History: Denies: Hx Renal Disease Psychiatric History: Denies: Hx Anxiety - Surgical History Surgical History: None Surgery Procedure, Year, and Place: None Infectious Disease History: Denies: Hx Clostridium Difficile, Hx Hepatitis, Hx Human Immunodeficiency Virus (HIV), Hx of Known/Suspected MRSA, Hx Shingles, Hx Tuberculosis, Hx Known/ Suspected VRE, Hx Known/Suspected VRSA, History Other Infectious Disease - Family History Known Family History: Negative: Respiratory Disease - Social History Alcohol Use: None Hx Substance Use: No Substance Use Type: Reports: None Hx Tobacco Use: No Smoking Status (MU): Never Smoked Tobacco Review of Systems Positive: Other - voice changes Positive: Chest Pain - mid-sternal radiating into upper abdomen Positive: Shortness Of Breath Negative: Abdominal Pain, Vomiting, Diarrhea, Nausea, Other - decreased appetite Negative: Edema - in lower extremities, Other - pain or swelling in calves All Other Systems Reviewed And Are Negative: Yes Physical Exam - Summary Physical Exam Summary: Constitutional: Well-developed, Well-nourished, Alert. (-) Distressed Skin: Warm, Dry HENT: Normocephalic; Atraumatic Eyes: Conjunctiva normal Neck: Musculoskeletal ROM normal neck. (-) JVD, (-) Stridor, (-) Tracheal deviation Cardio: Rhythm irregular, rate tachycardic, Heart sounds normal; Intact distal pulses; The pedal pulses are 2+ and symmetric. Radial pulses are 2+ and symmetric. (-) Murmur Pulmonary/Chest wall: Effort normal. Decreased breath sounds b/l, (-) Respiratory distress, (-) Wheezes, (-) Rales Abd: Soft, (-) tenderness, (-) Distension, (-) Guarding, (-) Rebound Musculoskeletal: (-) Edema Lymph: (-) Cervical adenopathy Neuro: Alert, Oriented x3 Psych: Mood and affect Normal Triage Information Reviewed: Yes Vital Signs Reviewed: Yes Procedures - Sedation Patient Received Moderate/Deep Sedation with Procedure: No Diagnostics - Laboratory Result Diagrams: 08/31/19 10:06 08/31/19 10:06 Lab Statement: Any lab studies that have been ordered have been reviewed, and results considered in the medical decision making process. - Radiology CXR Radiology Interpretation Completed By: Radiologist Summary of Radiographic Findings: Impression: Findings most consistent with pulmonary edema. This imaging report was reviewed by Dr. Edmonds. - CT Chest/Thorax CTA CT Interpretation Completed By: Radiologist Summary of CT Findings: Impression: 1. Questionable filling defect of the left atrial appendage. Correlate with echocardiography for thrombus. 2. No pulmonary embolus. 3. Pulmonary edema with moderate bilateral pleural effusions. 4. Reflux of contrast into the hepatic veins is suggestive of right-sided heart failure. 5. Atherosclerosis and coronary artery disease. This imaging report was reviewed by Dr. Edmonds. - EKG 0959 Cardiac Rate: Other Rate - 138 BPM EKG Rhythm: Atrial Fibrillation Summary of EKG Findings: An EKG at 0959 reveals atrial fibrillation at rate of 138 BPM. No STEMI. This EKG was reviewed and interpreted by Dr. Edmonds. Re-Evaluation - Re-Evaluation First Eval Re-Evaluation Time: 11:45 Comment: Patient and family agree with admission Chest Pain Course/Dx - Course Course Of Treatment: 78 y/o F presenting with mid-sternal CP and SOB onset three days ago with worsening since onset with inability to mildly exert herself without becoming dyspneic. Recent URI for the last three weeks. Denies GI symptoms, edema, calf pain or swelling. Physical exam reveals tachycardic rate with irregular rhythm, decreased breath sounds b/l. An EKG (obtained in triage) at 0959 reveals atrial fibrillation at rate of 138 BPM, no STEMI. No known atrial fibrillation history. Patient placed on environmental monitoring specialist. IV access obtained. Patient received fluids, Metoprolol, Diltiazem, and Cardizem drip. Blood work reveals INR of 1.11, D-Dimer of 630, carbon dioxide of 21, hyperglycemia of 204, and BNP of 534. First troponin negative at 0.01. Patient administered Lasix. CXR impression reveals pulmonary edema. Chest/Thorax CTA impression reveals questionable filling defect of the left atrial appendage correlated with echocardiography for thrombus, pulmonary edema with moderate bilateral pleural effusions, reflux of contrast into hepatic veins suggestive of right-sided heart failure, atherosclerosis, and coronary artery disease. Second 40mg dose Lasix administered. I spoke with Dr. Godinez from the ICU, and he accepts the patient for admission. All results discussed. Patient and family agreeable with plan. - Diagnoses Provider Diagnoses: Atrial fibrillation with RVR, Pulmonary edema, Bilateral pleural effusion - Provider Notifications Discussed Care Of Patient With: Nacho Godinez - jewelry sales coordinator Time Discussed With Above Provider: 11:30 Instructed by Provider To: Other - I discussed the patients case with Dr. Godinez, who will come the patient in the ED with plan for ICU admission. - Critical Care Time Critical Care Time: 30-74 min - 60 minutes Discharge ED - Sign-Out/Discharge Documenting (check all that apply): Patient Departure - Patient accepted for admission to ICU by Dr. Godinez. - Discharge Plan Condition: Stable Disposition: ADMITTED TO [facility] - Billing Disposition and Condition Condition: STABLE Disposition: Admitted to [facility] - Attestation Statements Document Initiated by Lennox: Yes Documenting Scribe: Nellie Fontaine Provider For Whom Lennox is Documenting (Include Credential): Dr. Anselmo Edmonds DO Scribe Attestation: Nellie Ellington scribed for Dr. Anselmo Edmonds DO on 08/31/19 at 1707. Scribe Documentation Reviewed: Yes Provider Attestation: The documentation as recorded by the Nellie lagunas accurately reflects the service I personally performed and the decisions made by me, Dr. Anselmo Edmonds DO Status of Scribkarely Document: Viewed
[2019-08-31 10:31] LABS: INR 1.11 (0.82-1.09)
[2019-08-31] MEDS ORDERED: Diltiazem IV BAG* D5W Premix 125 MG/125 ML BAG IV ONE (10:33)
[2019-08-31] MEDS ORDERED: Diltiazem IV push/loading dose 5 MG/ML 5 ML vial (25 mg) IV SLOW PU ONE (10:34)
[2019-08-31 10:37] LABS: Albumin 4.3 g/dL (3.2-5.2); Albumin/Globulin Ratio 1.4 (1-3); BUN/Creatinine Ratio 13.3 (8-20); Calcium 9.5 mg/dL (8.6-10.3); EGFR African American 73.1 (>60); EGFR Non-African American 60.4 (>60); Magnesium 2.1 mg/dL (1.9-2.7); Potassium 4.1 mmol/L (3.5-5.0); Total Bilirubin 0.4 mg/dL (0.2-1.0); Total Protein 7.3 g/dL (6.4-8.9)
[2019-08-31 10:38] LABS: Troponin I 0.01 ng/mL (<0.03)
[2019-08-31] MEDS ORDERED: Iodixanol* (CONTRAST) 320 MG/ML 100 ML SDV IV ONE (11:05)
[2019-08-31] MEDS ORDERED: Metoprolol Tartrate IV* 1 MG/ML 5 ML VIAL IV ONE (11:07)
[2019-08-31] MEDS ORDERED: Furosemide IV* 10 MG/ML VIAL (40 MG) IV ONE ×2 (11:21→12:21)
[2019-08-31 11:27] LABS: TSH (Thyroid Stimulating Horm) 2.4 mcIU/mL (0.34-5.60)
[2019-08-31] MEDS ORDERED: Digoxin IV* 0.5 MG/2 ML AMP (0.25 MG/ML) IV SLOW PU ONE (12:25)
[2019-08-31] MEDS ORDERED: Benzonatate CAP* 100 MG PO PRN (12:31)
[2019-08-31] MEDS ORDERED: Enoxaparin(*) 60 MG/0.6 ML SYR SUBCUT SCH (13:00)
[2019-08-31 13:35] LABS: Urine Appearance Clear; Urine Bilirubin Negative (Negative); Urine Blood Negative (Negative); Urine Color Colorless; Urine Glucose Negative (Negative); Urine Ketones Negative (Negative); Urine Nitrite Negative (Negative); Urine Protein Negative (Negative); Urine Specific Gravity 1.013 (1.010-1.030); Urine Urobilinogen Negative (Negative)
[2019-08-31 13:46] LABS: Influenza A Molecular Negative (Negative); Influenza B Molecular Negative (Negative)
[2019-08-31] MEDS: Gabapentin CAP(*) 300 MG PO SCH ×2 (14:05→20:00)
[2019-08-31] MEDS ORDERED: Dextrose 50% Syringe 50 ML* 25 GM/50 ML SYRINGE IV PUSH PRN (14:19)
--- NOTE | 2019-08-31 14:54 | HP ---
H&P (Free Text) History and Physical: HISTORY AND PHYSICAL DATE OF ADMISSION: 08/31/2019 ADMITTING PROVIDER: Dr. Godinez CHIEF COMPLAINT: 3 days of shortness of breath and chest pain HPI: 78F [place]nian-speaking only, with known medical history of HTN, DM, and depression, presents on 08/31/19 with 3 days of progressively worsening SOB and chest pain. Upon arrival to ED, she was noted to be in afib with RVR. Chest xray showed pulmonary edema. CT PE was complete and was negative for PE, however , there was a questionable filling defect of the left atrial appendage. Also showed pulmonary edema with bilateral pleural effusions. HPI is obtained with granddaughter at the bedside. Patient c/o feeling like she is "drowning". She also feels a fluttering in her chest and difficulty breathing. ROS: negative except for pertinent positives mentioned above PMHx: 1. HTN 2. DM 3. Depression PSHx: Unknown Family History: Unknown Social History: Denies alcohol, tobacco, or drug use Allergies: NKDA Home Medications: Alendronate (NF) [Fosamax (NF)] 70 mg PO WEEKLY 12/26/17 [History Confirmed ] Aspirin EC TAB* [Ecotrin EC Low Dose 81 MG*] 81 mg PO DAILY 12/26/17 [History Confirmed 08/31/19] Atenolol TAB* [Tenormin TAB* 25 MG] 25 mg PO DAILY 12/26/17 [History Confirmed 08/31/19] Cholecalciferol TAB* [Vitamin D TAB*] 1,000 unit PO DAILY 12/26/17 [History Confirmed 08/31/19] Gabapentin CAP(*) [Neurontin 300 CAP(*)] 300 mg PO TID 12/26/17 [History Confirmed 08/31/19] HYDROcodone/ACETAMIN 5-325 MG* [[place] 5-325 TAB*] 1 tab PO Q6H PRN MDD 4 tabs [History Confirmed 08/31/19] Lisinopril TAB* [Prinivil TAB 10 MG*] 40 mg PO DAILY 12/26/17 [History Confirmed 08/31/19] Multivitamins/Minerals TAB* [Theragran/minerals TAB*] 1 tab PO DAILY 12/26/17 [ History Confirmed 08/31/19] Omeprazole CAP (NF) [Prilosec CAP* 20 MG] 20 mg PO DAILY 12/26/17 [History Confirmed 08/31/19] amLODIPine TAB* [Norvasc 5 mg TAB*] 10 mg PO DAILY 12/26/17 [History Confirmed 08/31/19] Amoxicillin/Clavulanate TAB* [Augmentin TAB 500 mg*] 500 mg PO BID 08/31/19 [ History Confirmed 08/31/19] Benzonatate CAP* [Tessalon 100 MG CAP*] 100 mg PO TID PRN 08/31/19 [History Confirmed 08/31/19] Codeine Phosphate/Guaifenesin [Guaifen-Codeine 100-10 mg/5 ml] 10 ml PO Q8H PRN MDD 30ml 08/31/19 [History Confirmed 08/31/19] DULoxetine DR CAP* [Cymbalta CAP*] 40 mg PO DAILY 08/31/19 [History Confirmed ] Nut.tx.gluc.intoler,Lac-Fr,Soy [Glucerna] 237 ml PO DAILY 08/31/19 [History Confirmed 08/31/19] traZODone TAB* [Desyrel TAB*] 50 mg PO BEDTIME 08/31/19 [History Confirmed 08/31] Tele: Afib RVR, rate 90's to 120's Vitals: Vital Signs 08/31/19 08/31/19 08/31/19 10:12 10:17 10:45 Temperature 97.2 F Pulse Rate 125 123 126 Respiratory 33 24 26 Rate Blood Pressure 111/94 111/94 107/80 (mmHg) O2 Sat by Pulse 89 90 93 Oximetry 08/31/19 08/31/19 08/31/19 10:50 10:55 11:00 Temperature Pulse Rate 123 125 107 Respiratory 29 24 28 Rate Blood Pressure 117/93 110/84 119/82 (mmHg) O2 Sat by Pulse 92 93 92 Oximetry 08/31/19 08/31/19 08/31/19 11:01 11:05 11:10 Temperature Pulse Rate 132 124 113 Respiratory 22 26 29 Rate Blood Pressure 122/74 122/86 (mmHg) O2 Sat by Pulse 92 93 92 Oximetry 08/31/19 08/31/19 08/31/19 11:16 11:39 11:44 Temperature Pulse Rate 110 122 118 Respiratory 24 23 27 Rate Blood Pressure 120/74 131/93 107/78 (mmHg) O2 Sat by Pulse 92 91 91 Oximetry 08/31/19 08/31/19 08/31/19 11:49 12:00 12:05 Temperature Pulse Rate 109 111 98 Respiratory 24 24 27 Rate Blood Pressure 122/91 106/78 135/84 (mmHg) O2 Sat by Pulse 89 92 90 Oximetry 08/31/19 08/31/19 08/31/19 12:21 12:37 12:52 Temperature 98.8 F 99.5 F Pulse Rate 115 87 86 Respiratory 27 27 21 Rate Blood Pressure 165/115 116/88 104/64 (mmHg) O2 Sat by Pulse 93 97 98 Oximetry 08/31/19 08/31/19 08/31/19 13:00 13:05 13:06 Temperature 99.5 F 99.7 F 99.7 F Pulse Rate 80 81 96 Respiratory 18 14 23 Rate Blood Pressure 108/79 112/69 (mmHg) O2 Sat by Pulse 95 96 99 Oximetry 08/31/19 08/31/19 08/31/19 13:07 13:21 13:25 Temperature 99.7 F 99.7 F Pulse Rate 116 80 87 Respiratory 20 18 Rate Blood Pressure 124/84 124/84 (mmHg) O2 Sat by Pulse 97 97 Oximetry 08/31/19 08/31/19 13:37 13:43 Temperature 99.7 F Pulse Rate 93 110 Respiratory 22 21 Rate Blood Pressure 130/93 130/93 (mmHg) O2 Sat by Pulse 95 91 Oximetry Intake and Output Last 24 Hours 08/29/19 08/30/19 08/31/19 09/01/19 06:59 06:59 06:59 06:59 Intake Total 1000 Balance 1000 Weight 131 lb Intake: IV Fluids 1000 O2: 7LNC Infusions: Cardizem @ 15mg/hr Current Medications: Benzonatate (Tessalon Cap*) 100 mg PO TID PRN PRN Reason: COUGH Cholecalciferol (Vitamin D Tab*) 1,000 units PO DAILY [facility] Duloxetine HCl (Cymbalta Cap*) 40 mg PO DAILY [facility] Enoxaparin Sodium (Lovenox(*)) 60 mg SUBCUT Q12H DANICA Last Admin: 08/31/19 14:05 Dose: 60 mg Gabapentin (Neurontin Cap(*)) 300 mg PO TID [facility] Last Admin: 08/31/19 14:05 Dose: 300 mg Diltiazem/Dextrose (Cardizem Iv D5w Bag* Premix) 125 mg in 125 mls @ 10 mls/hr IV ED ONCE ONE; Protocol Stop: 08/31/19 23:02 Last Admin: 08/31/19 10:41 Dose: 10 mls/hr Lisinopril (Prinivil Tab*) 40 mg PO DAILY [facility] Multivitamins/Minerals (Theragran/Minerals Tab*) 1 tab PO DAILY [facility] Pantoprazole Sodium (Protonix Tab*) 40 mg PO DAILY [facility] Physical Exam: Constitutional: awake, alert, mild distress Head: normocephalic, atraumatic Eyes: no pallor, no icterus ENT: moist mucous membranes Neck: soft, supple CVS: irregular rate, no obvious murmur Chest/Resp: bilateral air entry, diminished no rhales, no wheeze, no rhonchi. Appears SOB Abdomen/GI: soft, nontender, nondistended, BS+ Ext/Msk: warm, pulses+, BLE edema +1 Skin: intact, warm Neuro: awake, alert, orientedx3, moving all extremities, no gross focal deficit Psych: normal affect Labs: Laboratory Results - last 24 hr 08/31/19 08/31/19 08/31/19 10:06 10:06 10:06 WBC 8.0 RBC 4.47 Hgb 13.6 Hct 41 MCV 91 MCH 31 MCHC 34 RDW 14 Plt Count 403 MPV 8.4 Neut % (Auto) 74.6 Lymph % (Auto) 17.5 Williams % (Auto) 6.8 Eos % (Auto) 0.4 Baso % (Auto) 0.7 Absolute Neuts (auto) 5.9 Absolute Lymphs (auto) 1.4 Absolute Monos (auto) 0.5 Absolute Eos (auto) 0.0 Absolute Basos (auto) 0.1 Absolute Nucleated RBC 0.0 Nucleated RBC % 0.0 INR (Anticoag Therapy) 1.11 H D-Dimer, Quantitative 630 H Sodium 136 Potassium 4.1 Chloride 105 Carbon Dioxide 21 L Anion Gap 10 BUN 12 Creatinine 0.90 Est GFR ( Amer) 73.1 Est GFR (Non-Af Amer) 60.4 BUN/Creatinine Ratio 13.3 Glucose 204 H Lactic Acid Calcium 9.5 Magnesium 2.1 Total Bilirubin 0.40 AST 19 ALT 19 Alkaline Phosphatase 47 Troponin I 0.01 B-Natriuretic Peptide Total Protein 7.3 Albumin 4.3 Globulin 3.0 Albumin/Globulin Ratio 1.4 TSH 2.40 Urine Color Urine Appearance Urine pH Ur Specific [place] Urine Protein Urine Ketones Urine Blood Urine Nitrate Urine Bilirubin Urine Urobilinogen Ur Leukocyte Esterase Urine Glucose Influenza A (Rapid) Influenza B (Rapid) 08/31/19 08/31/19 08/31/19 10:06 10:06 10:14 WBC RBC Hgb Hct MCV MCH MCHC RDW Plt Count MPV Neut % (Auto) Lymph % (Auto) Williams % (Auto) Eos % (Auto) Baso % (Auto) Absolute Neuts (auto) Absolute Lymphs (auto) Absolute Monos (auto) Absolute Eos (auto) Absolute Basos (auto) Absolute Nucleated RBC Nucleated RBC % INR (Anticoag Therapy) D-Dimer, Quantitative Sodium Potassium Chloride Carbon Dioxide Anion Gap BUN Creatinine Est GFR ( Amer) Est GFR (Non-Af Amer) BUN/Creatinine Ratio Glucose Lactic Acid 1.7 Calcium Magnesium Total Bilirubin AST ALT Alkaline Phosphatase Troponin I B-Natriuretic Peptide 534 H Total Protein Albumin Globulin Albumin/Globulin Ratio TSH Urine Color Urine Appearance Urine pH Ur Specific [place] Urine Protein Urine Ketones Urine Blood Urine Nitrate Urine Bilirubin Urine Urobilinogen Ur Leukocyte Esterase Urine Glucose Influenza A (Rapid) Negative Influenza B (Rapid) Negative 08/31/19 12:48 WBC RBC Hgb Hct MCV MCH MCHC RDW Plt Count MPV Neut % (Auto) Lymph % (Auto) Williams % (Auto) Eos % (Auto) Baso % (Auto) Absolute Neuts (auto) Absolute Lymphs (auto) Absolute Monos (auto) Absolute Eos (auto) Absolute Basos (auto) Absolute Nucleated RBC Nucleated RBC % INR (Anticoag Therapy) D-Dimer, Quantitative Sodium Potassium Chloride Carbon Dioxide Anion Gap BUN Creatinine Est GFR ( Amer) Est GFR (Non-Af Amer) BUN/Creatinine Ratio Glucose Lactic Acid Calcium Magnesium Total Bilirubin AST ALT Alkaline Phosphatase Troponin I B-Natriuretic Peptide Total Protein Albumin Globulin Albumin/Globulin Ratio TSH Urine Color Colorless Urine Appearance Clear Urine pH 5.0 Ur Specific [place] 1.013 Urine Protein Negative Urine Ketones Negative Urine Blood Negative Urine Nitrate Negative Urine Bilirubin Negative Urine Urobilinogen Negative Ur Leukocyte Esterase Negative Urine Glucose Negative Influenza A (Rapid) Influenza B (Rapid) Imaging: See HPI Assessment: 78F with known medical history of HTN, DM and depression, presents on 08/31/19 after experiencing progressively worsening SOB and chest pain. Found to be in new onset afib with RVR. Started on cardizem drip. Chest xray showed pulmonary edema. CT PE neg for PE but showed questionable filling defect of the left atrial appendage. Also showed pulmonary edema with moderate bilateral pleural effusions. Cardiology consulted for new onset afib. - Afib with RVR - HTN - Pulmonary edema - Pleural effusions Plan: Neuro- - No active issues -Delirium prec; avoid BDZ CVS- - HTN: chronic. According to her granddaughter, BP is labile and hard to control. Continue lisinopril. -Maintain MAP>65 as long as SBP<160 - New onset afib with RVR: acute: started on cardizem drip. Given metoprolol 5mg IV once without effect. Cardiology consulted. Recommended 0.5mg digoxin x 1 dose. Echo ordered. - Patient may need RITA and possible cardioversion. - New onset heart failure: likely d/t untreated afib. Will obtain echo Resp- - Pulmonary edema: acute. O2 requirements significantly increased while in ED. Ended up on 40L/100% vapotherm. Diuresed with 40mg lasix x 2 doses with positive effect. Able to wean down settings on vapotherm. She may require additional doses of lasix. -Wean Fio2 to keep sat 88-92% -Aspiration prec, Pulmonary Toilet ID- - No active issues - Goal temp<101 GI- -Nutrition: Heart healthy -GI prophylaxis: protonix Renal- - No active issues -strict I/O,continue burt Heme- - Cardiology recommended therapeutic lovenox so started Lovenox 60mg BID - SCDs Endo- - DM: chronic. Doesnt appear to be on medications at home. - Will check BGs ACHS and cover with insulin if needed - Maintain BG<200 Musculsk- pressure ulcer prophylaxis. OOB Wounds- none Nutrition- Heart healthy diet DVT prophylaxis: SCDs and lovenox GI prophylaxis: PPI Burt Catheter: Disposition: Admit to ICU; Patient requires Critical Care/ICU for new onset afib, hypoxia requiring vapotherm, pulmonary edema, pleural effusions Patient Clinical Status: critical Code Status: full Total Critical Care time is 45 minutes
--- NOTE | 2019-08-31 15:46 | ECHO ---
*[facility]* [place] [address] Fax #: [phone] Transthoracic Echocardiogram Patient: Melonie Rodriguez : 1940 Study Date: 08/31/2019 Age: 78 Gender: F HR: 85 bpm Height: 59 in /149.9 cm BSA: 1.54 m^2 Weight: 130.7 lb /59.4 kg BMI: 26.5 kg/m^2 *Business Mail Entry Clerk: * Kelly Michael RD *Referring Physician: * Anselmo EdmondsReading Physician: * Brent Godinez MD Indications: Congestive Heart Failure. History: Risk factors: Hypertension. Diabetes mellitus. Conclusions Summary: - Left ventricle: The cavity size is normal. Wall thickness is normal. Systolic function is at the lower limits of normal. The estimated ejection fraction is 50-55%, LVEF difficult to estimate due to atrial fibrillation at time of study. Wall motion is normal; there are no regional wall motion abnormalities. - Right ventricle: The cavity size is mildly dilated. Systolic function is mildly reduced. - Left atrium: The atrium is moderately dilated. - Pulmonary arteries: Systolic pressure can not be accurately estimated. - No significant valvular abnormalities noted. Recommendations: None prior for comparison at time of interpretation. Study data: Transthoracic echocardiogram. Procedure: Transthoracic echocardiography was performed. Image quality was fair. Complete 2D, spectral Doppler, and color flow Doppler. Location: ICU Patient status: Inpatient. Patient room number: ICU-02. Rhythm: Atrial fibrillation. Findings Left ventricle: The cavity size is normal. Wall thickness is normal. Systolic function is at the lower limits of normal. The estimated ejection fraction is 50-55%, LVEF difficult to estimate due to atrial fibrillation at time of study. Wall motion is normal; there are no regional wall motion abnormalities. Left ventricular diastolic function parameters are indeterminate. Right ventricle: The cavity size is mildly dilated. Systolic function is mildly reduced. Left atrium: The atrium is moderately dilated. Right atrium: The atrium is at the upper limits of normal in size. Mitral valve: The leaflets are mildly thickened. There is no evidence of stenosis. There is mild regurgitation. Aortic valve: The valve is trileaflet. The leaflets are normal thickness. There is no evidence of stenosis. There is trace to mild regurgitation. Tricuspid valve: The leaflets are normal thickness. There is no evidence of stenosis. There is trace to mild regurgitation. Pulmonic valve: The leaflets are normal thickness. There is no evidence of stenosis. There is trace regurgitation. Aorta: Aortic root: The aortic root is appears normal. Ascending aorta: The ascending aorta is appears normal. Aortic arch: The aortic arch is appears normal. Pericardium: There is no significant pericardial effusion. Pleural effusion noted. Pulmonary arteries: The main pulmonary artery is normal-sized. Systolic pressure can not be accurately estimated. Systemic veins: Inferior vena cava: The vessel is normal in size. There is (>= 50%) respiratory change in the IVC dimension. Measurements Left ventricle Value Ref Aortic valve Value Ref FABIENNE, LAX 4.0 cm 3.8 - 5.2 Vikas diam, ED 1.9 cm ---- ESD, LAX 2.6 cm 2.2 - 3.5 Vikas diam/bsa, ED 1.2 cm/m^2 ---- FS, LAX 34 % 27 - 45 Peak v, S 1.05 m/sec ---- PW, ED, LAX 0.8 cm 0.6 - 0.9 VTI, S 19.3 cm ---- FS 34 % 27 - 45 Mean grad, S 2.0 mm Hg ---- Mid-wall FS 15 % Peak grad, S 4.0 mm Hg ---- PW, ED 0.8 cm 0.6 - 0.9 E', lat vikas, TDI (L) 8.4 cm/sec >=10.0 Mitral valve Value R ef E/e', lat vikas, 14 Peak E 1.17 m/sec ---- TDI Decel time 179 ms ---- E', med vikas, TDI 7.6 cm/sec >=7.0 Peak grad, D 5.5 mm Hg - --- E/e', med vikas, 15 TDI Pulmonic valve Value Ref E', avg, TDI 8.0 cm/sec Peak v, S 0.76 m/sec ---- E/e', avg, TDI (H) 15 <=14 Peak grad, S 2.0 mm Hg - --- LVOT Value Ref Aortic root Value Ref Peak romi, S 0.72 m/sec Root diam 3.1 cm <3.8 Mean grad, S 1 mm Hg Ascending aorta Value Ref Ventricular septum Value Ref AAo AP diam, S 3.2 cm ---- IVS, ED 0.9 cm 0.6 - 0.9 Aortic arch Value Ref Right ventricle Value Ref Arch diam 2.6 cm ---- FABIENNE, LAX 2.9 cm FABIENNE minor ax, A4C (H) 3.8 cm 1.9 - 3.5 Decending aorta Value Ref mid Ruddy peak romi 0.38 m/sec ---- Left atrium Value Ref Inferior vena cava Value Ref AP dim, ES 3.80 cm 2.70 - Diam 1.5 cm ---- 3.80 ML dim, A4C 4.5 cm SI dim, A4C 5.3 cm Vol/bsa, ES, 1-p (H) 42 ml/m^2 11 - 40 A4C Vol/bsa, ES, A/L (H) 48 ml/m^2 16 - 34 Right atrium Value Ref SI dim, ES 5.2 cm 3.4 - 5.3 ML dim, ES, A4C 3.4 cm 2.6 - 4.4 Legend: (L) and (H) naseem values outside specified reference range. Prepared and electronically signed by Brent Godinez MD 08/31/2019 15:45
[2019-08-31] MEDS ORDERED: Atenolol TAB* 50 MG ONE (16:34)
--- NOTE | 2019-08-31 16:35 | CONSULT ---
Subjective Date of Service: 08/31/19 Interval History: Admission Date: 08/31/19 Consult date 08/31/2019 Service: Hospitalist PCP: Dr. De La O CC: Dyspnea, chest discomfort Reason for consult: CHF, Afib HPI : Melonie Stewart is a 78 year old [place]nian speaking woman whose daughter and son in law are translating at patients request and preference. Lives with them and daughter cares for her. She used to have severe nightsweats until cymbalta was started. Her son and both in war. She has had several weeks of respiratory symptoms has had URI. This week started with elevated HR (daughter checks at home), worsening dyspnea, chest tightness, palpitations and orthopnea. She was found with new onset rapid atrial and CHF. She has received IV lasix, IV digoxin, IV lopresor and IV diltiazem and has improved with good UOP. She remains on 02 NC. She denies any bleeding history, anemia, nsaids or transfusions. PMHx: 1. HTN 2. DM 3. Depression PSHx: Non-relevant Family History: Non-contributory Social History Denies alcohol, tobacco, or drug use Medications Active Medications: Atenolol (Tenormin Tab*) 50 mg PO BID DANICA Benzonatate (Tessalon Cap*) 100 mg PO TID PRN PRN Reason: COUGH Cholecalciferol (Vitamin D Tab*) 1,000 units PO DAILY [facility] Dextrose (D50w Syringe 50 Ml*) 12.5 gm IV PUSH .FOR FS < 60 - SS PRN PRN Reason: FS < 60 Duloxetine HCl (Cymbalta Cap*) 40 mg PO DAILY [facility] Enoxaparin Sodium (Lovenox(*)) 60 mg SUBCUT Q12H [facility] Last Admin: 08/31/19 14:05 Dose: 60 mg Furosemide (Lasix Tab*) 20 mg PO DAILY DANICA Gabapentin (Neurontin Cap(*)) 300 mg PO TID [facility] Last Admin: 08/31/19 14:05 Dose: 300 mg Insulin Human Lispro (Humalog*) 0 units SUBCUT ACHS [facility]; Protocol Lisinopril (Prinivil Tab*) 40 mg PO DAILY [facility] Metoprolol Tartrate (Lopressor Iv*) 5 mg IV Q6H PRN PRN Reason: HEART RATE/PULSE GREATER THAN: Multivitamins/Minerals (Theragran/Minerals Tab*) 1 tab PO DAILY [facility] Pantoprazole Sodium (Protonix Tab*) 40 mg PO DAILY [facility] Home Medications: Alendronate (NF) [Fosamax (NF)] 70 mg PO WEEKLY 12/26/17 [History Confirmed ] Aspirin EC TAB* [Ecotrin EC Low Dose 81 MG*] 81 mg PO DAILY 12/26/17 [History Confirmed 08/31/19] Atenolol TAB* [Tenormin TAB* 25 MG] 25 mg PO DAILY 12/26/17 [History Confirmed 08/31/19] Cholecalciferol TAB* [Vitamin D TAB*] 1,000 unit PO DAILY 12/26/17 [History Confirmed 08/31/19] Gabapentin CAP(*) [Neurontin 300 CAP(*)] 300 mg PO TID 12/26/17 [History Confirmed 08/31/19] HYDROcodone/ACETAMIN 5-325 MG* [[place] 5-325 TAB*] 1 tab PO Q6H PRN MDD 4 tabs [History Confirmed 08/31/19] Lisinopril TAB* [Prinivil TAB 10 MG*] 40 mg PO DAILY 12/26/17 [History Confirmed 08/31/19] Multivitamins/Minerals TAB* [Theragran/minerals TAB*] 1 tab PO DAILY 12/26/17 [ History Confirmed 08/31/19] Omeprazole CAP (NF) [Prilosec CAP* 20 MG] 20 mg PO DAILY 12/26/17 [History Confirmed 08/31/19] amLODIPine TAB* [Norvasc 5 mg TAB*] 10 mg PO DAILY 12/26/17 [History Confirmed 08/31/19] Amoxicillin/Clavulanate TAB* [Augmentin TAB 500 mg*] 500 mg PO BID 08/31/19 [ History Confirmed 08/31/19] Benzonatate CAP* [Tessalon 100 MG CAP*] 100 mg PO TID PRN 08/31/19 [History Confirmed 08/31/19] Codeine Phosphate/Guaifenesin [Guaifen-Codeine 100-10 mg/5 ml] 10 ml PO Q8H PRN MDD 30ml 08/31/19 [History Confirmed 08/31/19] DULoxetine DR CAP* [Cymbalta CAP*] 40 mg PO DAILY 08/31/19 [History Confirmed ] Nut.tx.gluc.intoler,Lac-Fr,Soy [Glucerna] 237 ml PO DAILY 08/31/19 [History Confirmed 08/31/19] traZODone TAB* [Desyrel TAB*] 50 mg PO BEDTIME 08/31/19 [History Confirmed 08/31] Review of Systems - Measurements Intake and Output: Intake and Output Last 24 Hours 08/29/19 08/30/19 08/31/19 09/01/19 06:59 06:59 06:59 06:59 Intake Total 1000 Output Total 1650 Balance -650 Weight 132 lb Intake: IV Fluids 1000 Output: Donahue 1650 Other: Estimated Void Large - Review of Systems Review of Systems Statement: All other review of systems negative, unless stated above. Objective Vital Signs: Temp Pulse Resp BP Pulse Ox 97.7 F 92 19 114/47 92 08/31/19 16:00 08/31/19 16:00 08/31/19 16:00 08/31/19 16:00 08/31/19 16:00 Oxygen Devices in Use Now: High Flow Heated Nasal Cannula Appearance: nad, pleasant Ears/Nose/Mouth/Throat: Clear Oropharnyx, Mucous Membranes Moist Neck: Trachea Midline Respiratory: Symmetrical Chest Expansion and Respiratory Effort, - - decreased breath sound bilateral bases Cardiovascular: - - irregularly irregular, no significant murmur Abdominal: NL Sounds; No Tenderness; No Distention Extremities: No Edema Skin: No Rash or Ulcers Neurological: Alert and Oriented x 3 Laboratory Results: 08/31/19 10:06 08/31/19 10:06 INR (Anticoag Therapy) 1.11 (0.82-1.09) H 08/31/19 10:06 Total Bilirubin 0.40 mg/dL (0.2-1.0) 08/31/19 10:06 AST 19 U/L (13-39) 08/31/19 10:06 ALT 19 U/L (7-52) 08/31/19 10:06 Alkaline Phosphatase 47 U/L (34-104) 08/31/19 10:06 B-Natriuretic Peptide 534 pg/mL (<=100) H 08/31/19 10:06 Total Protein 7.3 g/dL (6.4-8.9) 08/31/19 10:06 Albumin 4.3 g/dL (3.2-5.2) 08/31/19 10:06 Globulin 3.0 g/dL (2-4) 08/31/19 10:06 Albumin/Globulin Ratio 1.4 (1-3) 08/31/19 10:06 TSH 2.40 mcIU/mL (0.34-5.60) 08/31/19 10:06 08/31/19 10:06 Troponin I 0.01 mg 2.1 Diagnostic Imaging: Exam Date: 08/31/19 CTA CHEST IMPRESSION: 1. Questionable filling defect of the left atrial appendage. Correlate with echocardiography for thrombus. 2. No pulmonary embolus. 3. Pulmonary edema with moderate bilateral pleural effusions. 4. Reflux of contrast into the hepatic veins is a is suggestive of right-sided heart failure. 5. Atherosclerosis and coronary artery disease. Transthoracic Echocardiogram Study Date: Summary: - Left ventricle: The cavity size is normal. Wall thickness is normal. Systolic function is at the lower limits of normal. The estimated ejection fraction is 50-55%, LVEF difficult to estimate due to atrial fibrillation at time of study. Wall motion is normal; there are no regional wall motion abnormalities. - Right ventricle: The cavity size is mildly dilated. Systolic function is mildly reduced. - Left atrium: The atrium is moderately dilated. - Pulmonary arteries: Systolic pressure can not be accurately estimated. - No significant valvular abnormalities noted. EKG Data: admission ekg: afib 140 bpm, nonspecific st/t changes Assessment/Plan 1. New onset rapid atrial fibrillation 2. New onset diastolic heart failure - likely secondary to #1 3. HTN 4. DM - d/c aspirin - start therapeutic lovenox for now, once stable would change to eliquis 5 mg po bid. Risks, benefits of OAC discussed - d/c diltiazem gtt (ordered) - hold on further digoxin - change home atenolol to 50 mg po bid (ordered), PRN 5 mg IV lopressor overnight. Adjust/add oral rate control meds as needed. We discussed risks and benefits of rate vs. rhythm control, will continue rate control approach and can reconsider as an outpatient in several weeks pending clinical course. - continue diuresis, start 20 mg po lasix tomorrow (ordered) - continue lisinopril 40 mg po daily (ordered) - d/c norvasc (ordered) Once diuresed and rate controlled and symptomatically improved can be discharged from a cardiac standpoint. Will arrange cardiology follow up.
[2019-08-31] MEDS: Atenolol TAB* 50 MG PO SCH (16:36)
[2019-08-31] MEDS: Insulin LISPRO* 1 UNITS UNIT SUBCUT SCH ×2 (16:44→20:15)
[2019-08-31] MEDS: Enoxaparin(*) 60 MG/0.6 ML SYR SUBCUT SCH (21:23)
[2019-09-01] MEDS: Metoprolol Tartrate IV* 1 MG/ML 5 ML VIAL IV PRN (01:17)
[2019-09-01 05:11] LABS: ABS Basophils 0.1 10^3/ul (0-0.2); ABS Lymphocytes 1.8 10^3/ul (1.0-4.8); ABS Monocytes 0.6 10^3/ul (0-0.8); ABS Neutrophils 5.8 10^3/ul (1.5-7.7); Eosinophil % 0.6 %; Hematocrit 40 % (35-47); Hemoglobin 13.3 g/dL (12.0-16.0); Lymphocyte % 21.5 %; Mean Corpuscular HGB Conc 33 g/dL (31-36); Mean Corpuscular Hemoglobin 31 pg (27-31); Mean Corpuscular Volume 92 fL (80-97); Platelet Count 311 10^3/uL (150-450); Red Blood Count 4.34 10^6 /uL (3.70-4.87); Red Cell Distribution Width 14 % (10-15); White Blood Count 8.4 10^3/uL (3.5-10.8)
[2019-09-01 05:27] LABS: BUN/Creatinine Ratio 13.4 (8-20); Calcium 8.5 mg/dL (8.6-10.3); EGFR African American 81.4 (>60); EGFR Non-African American 67.2 (>60); Potassium 3.5 mmol/L (3.5-5.0)
[2019-09-01] MEDS: Atenolol TAB* 50 MG PO SCH ×2 (07:45→20:48)
[2019-09-01] MEDS: Insulin LISPRO* 1 UNITS UNIT SUBCUT SCH ×4 (08:31→20:50)
[2019-09-01] MEDS: Cholecalciferol TAB* 1000 UNITS PO SCH (08:35)
[2019-09-01] MEDS: Pantoprazole TAB * 40 MG TAB PO SCH (08:35)
[2019-09-01] MEDS: Multivitamins/Minerals TAB PO SCH (08:36)
[2019-09-01] MEDS: Gabapentin CAP(*) 300 MG PO SCH ×3 (08:36→20:49)
[2019-09-01] MEDS: Lisinopril TAB* 10 MG PO SCH (08:36)
[2019-09-01] MEDS: Furosemide TAB* 20 MG PO SCH (08:36)
[2019-09-01] MEDS: DULoxetine DR CAP* 20 MG CAP.DR PO SCH (08:38)
[2019-09-01] MEDS ORDERED: amLODIPine TAB* 5 MG PO SCH (09:00)
[2019-09-01] MEDS ORDERED: Lisinopril TAB* 10 MG PO SCH (09:00)
[2019-09-01] MEDS ORDERED: Furosemide IV* 10 MG/ML 2 ML VIAL (20 MG) IV SLOW PU ONE (09:13)
[2019-09-01] MEDS: Enoxaparin(*) 60 MG/0.6 ML SYR SUBCUT SCH (09:52)
[2019-09-01] MEDS: KCL 20 MEQ/100 ML IVPREMIX* 20 MEQ/100 ML BAG IV SCH ×2 (09:53→13:09)
--- NOTE | 2019-09-01 10:30 | PN ---
Date of Service: 09/01/19 Critical Care Services: Patient had an uneventful evening - diuresed about 3 liters, and O2 requirement has dropped to only 3 L/min by nasal prongs. She continues in AFib with ventricular rate around 100 - 120 bpm - seen by cardiology, who recommended beta blockers for rate control. Vital Signs: Temp Pulse Resp BP SpO2 FiO2 98.3 F 104 25 77/69 92 100 Physical Exam: Gen: Alert, and breathing comfortably HEENT: No nasal flaring Lungs:Diminished BS at right base. Cardiac: Irreg rhythm. No murmurs appreciated. Abdomen: Not distended. Extremities: Trace edema both legs. Fluid Balance (Past 24 Hours): 09/01/19 06:59 Intake Total 1410 Output Total 3055 Balance -1645 Weight 134 lb Intake: IV Fluids 1000 Oral 410 Output: Donahue 3055 Other: Estimated Void Large Labs: 08/31/19 08/31/19 08/31/19 10:06 10:06 10:06 WBC RBC Hgb Hct MCV MCH MCHC RDW Plt Count MPV Neut % (Auto) Lymph % (Auto) Marshall % (Auto) Eos % (Auto) Baso % (Auto) Absolute Neuts (auto) Absolute Lymphs (auto) Absolute Monos (auto) Absolute Eos (auto) Absolute Basos (auto) Absolute Nucleated RBC Nucleated RBC % INR (Anticoag Therapy) 1.11 H D-Dimer, Quantitative 630 H Sodium 136 Potassium 4.1 Chloride 105 Carbon Dioxide 21 L Anion Gap 10 BUN 12 Creatinine 0.90 Est GFR ( Amer) 73.1 Est GFR (Non-Af Amer) 60.4 BUN/Creatinine Ratio 13.3 Glucose 204 H POC Glucose (mg/dL) Lactic Acid 1.7 Calcium 9.5 Magnesium 2.1 Total Bilirubin 0.40 AST 19 ALT 19 Alkaline Phosphatase 47 Troponin I 0.01 B-Natriuretic Peptide Total Protein 7.3 Albumin 4.3 Globulin 3.0 Albumin/Globulin Ratio 1.4 TSH 2.40 Urine Color Urine Appearance Urine pH Ur Specific Martha Urine Protein Urine Ketones Urine Blood Urine Nitrate Urine Bilirubin Urine Urobilinogen Ur Leukocyte Esterase Urine Glucose Influenza A (Rapid) Influenza B (Rapid) 08/31/19 08/31/19 08/31/19 10:06 10:14 12:48 WBC RBC Hgb Hct MCV MCH MCHC RDW Plt Count MPV Neut % (Auto) Lymph % (Auto) Marshall % (Auto) Eos % (Auto) Baso % (Auto) Absolute Neuts (auto) Absolute Lymphs (auto) Absolute Monos (auto) Absolute Eos (auto) Absolute Basos (auto) Absolute Nucleated RBC Nucleated RBC % INR (Anticoag Therapy) D-Dimer, Quantitative Sodium Potassium Chloride Carbon Dioxide Anion Gap BUN Creatinine Est GFR ( Amer) Est GFR (Non-Af Amer) BUN/Creatinine Ratio Glucose POC Glucose (mg/dL) Lactic Acid Calcium Magnesium Total Bilirubin AST ALT Alkaline Phosphatase Troponin I B-Natriuretic Peptide 534 H Total Protein Albumin Globulin Albumin/Globulin Ratio TSH Urine Color Colorless Urine Appearance Clear Urine pH 5.0 Ur Specific Martha 1.013 Urine Protein Negative Urine Ketones Negative Urine Blood Negative Urine Nitrate Negative Urine Bilirubin Negative Urine Urobilinogen Negative Ur Leukocyte Esterase Negative Urine Glucose Negative Influenza A (Rapid) Negative Influenza B (Rapid) Negative 08/31/19 08/31/19 09/01/19 16:41 20:03 05:04 WBC RBC Hgb Hct MCV MCH MCHC RDW Plt Count MPV Neut % (Auto) Lymph % (Auto) Marshall % (Auto) Eos % (Auto) Baso % (Auto) Absolute Neuts (auto) Absolute Lymphs (auto) Absolute Monos (auto) Absolute Eos (auto) Absolute Basos (auto) Absolute Nucleated RBC Nucleated RBC % INR (Anticoag Therapy) D-Dimer, Quantitative Sodium 138 Potassium 3.5 Chloride 108 Carbon Dioxide 19 L Anion Gap 11 BUN 11 Creatinine 0.82 Est GFR ( Amer) 81.4 Est GFR (Non-Af Amer) 67.2 BUN/Creatinine Ratio 13.4 Glucose 140 H POC Glucose (mg/dL) 132 H 262 H Lactic Acid Calcium 8.5 L Magnesium 2.0 Total Bilirubin AST ALT Alkaline Phosphatase Troponin I B-Natriuretic Peptide Total Protein Albumin Globulin Albumin/Globulin Ratio TSH Urine Color Urine Appearance Urine pH Ur Specific Martha Urine Protein Urine Ketones Urine Blood Urine Nitrate Urine Bilirubin Urine Urobilinogen Ur Leukocyte Esterase Urine Glucose Influenza A (Rapid) Influenza B (Rapid) 09/01/19 05:04 WBC 8.4 RBC 4.34 Hgb 13.3 Hct 40 MCV 92 MCH 31 MCHC 33 RDW 14 Plt Count 311 MPV 8.0 Neut % (Auto) 69.5 Lymph % (Auto) 21.5 Marshall % (Auto) 7.6 Eos % (Auto) 0.6 Baso % (Auto) 0.8 Absolute Neuts (auto) 5.8 Absolute Lymphs (auto) 1.8 Absolute Monos (auto) 0.6 Absolute Eos (auto) 0.0 Absolute Basos (auto) 0.1 Absolute Nucleated RBC 0.0 Nucleated RBC % 0.0 INR (Anticoag Therapy) D-Dimer, Quantitative Sodium Potassium Chloride Carbon Dioxide Anion Gap BUN Creatinine Est GFR ( Amer) Est GFR (Non-Af Amer) BUN/Creatinine Ratio Glucose POC Glucose (mg/dL) Lactic Acid Calcium Magnesium Total Bilirubin AST ALT Alkaline Phosphatase Troponin I B-Natriuretic Peptide Total Protein Albumin Globulin Albumin/Globulin Ratio TSH Urine Color Urine Appearance Urine pH Ur Specific Martha Urine Protein Urine Ketones Urine Blood Urine Nitrate Urine Bilirubin Urine Urobilinogen Ur Leukocyte Esterase Urine Glucose Influenza A (Rapid) Influenza B (Rapid) Studies: TTE yesterday showed normal LV systolic function with no regional wall motion abnormalities. Nutrition: Heart healthy diet Impression: Clinically stable. Ventricular rate reasonably well controlled on beta deandra Rx, and no clinical signs of heart failure at the present time. Does, however, have pleural effusions, especially on the right side. Plan: 1. Switch from enoxaparin to an oral anticoagulant. 2. Continue beta blockers for rate control (especially considering normal LV systolic function) 3. Continue semi-aggressive diuresis. 4) K and Mg replacement PRN. Critical Care Time: 35 minutes
[2019-09-01] MEDS: Apixaban* 5 MG TAB PO SCH (20:50)
[2019-09-02 06:58] LABS: BUN/Creatinine Ratio 15.3 (8-20); Calcium 9.7 mg/dL (8.6-10.3); EGFR African American 78.1 (>60); EGFR Non-African American 64.5 (>60); Potassium 4.1 mmol/L (3.5-5.0)
[2019-09-02] MEDS: Insulin LISPRO* 1 UNITS UNIT SUBCUT SCH ×4 (08:29→21:11)
[2019-09-02] MEDS: Furosemide TAB* 20 MG PO SCH (09:17)
[2019-09-02] MEDS: DULoxetine DR CAP* 20 MG CAP.DR PO SCH (09:17)
[2019-09-02] MEDS: Pantoprazole TAB * 40 MG TAB PO SCH (09:17)
[2019-09-02] MEDS: Apixaban* 5 MG TAB PO SCH ×2 (09:19→20:58)
[2019-09-02] MEDS: Cholecalciferol TAB* 1000 UNITS PO SCH (09:19)
[2019-09-02] MEDS: Gabapentin CAP(*) 300 MG PO SCH ×3 (09:19→20:57)
[2019-09-02] MEDS: Multivitamins/Minerals TAB PO SCH (09:19)
[2019-09-02] MEDS: Atenolol TAB* 50 MG PO SCH (09:19)
[2019-09-02] MEDS: Lisinopril TAB* 10 MG PO SCH (09:19)
[2019-09-02] MEDS: Metoprolol Tartrate IV* 1 MG/ML 5 ML VIAL IV PRN ×3 (10:32→23:09)
[2019-09-02] MEDS ORDERED: Metoprolol Tartrate TAB* 25 MG PO SCH (14:00)
--- NOTE | 2019-09-02 15:53 | PN ---
Subjective Date of Service: 09/02/19 Interval History: Melonie is seen with her family at the bedside, who prefer to interpret for her over an steeping press operator. She feels much better and is denies chest pain, shortness of breath, orthopnea, swelling, palpitations. Her HR has remained labile. Objective Active Medications: Apixaban (Eliquis*) 5 mg PO BID [facility] Last Admin: 09/02/19 09:19 Dose: 5 mg Benzonatate (Tessalon Cap*) 100 mg PO TID PRN PRN Reason: COUGH Cholecalciferol (Vitamin D Tab*) 1,000 units PO DAILY [facility] Last Admin: 09/02/19 09:19 Dose: 1,000 units Dextrose (D50w Syringe 50 Ml*) 12.5 gm IV PUSH .FOR FS < 60 - SS PRN PRN Reason: FS < 60 Duloxetine HCl (Cymbalta Cap*) 40 mg PO DAILY [facility] Last Admin: 09/02/19 09:17 Dose: 40 mg Furosemide (Lasix Tab*) 20 mg PO DAILY [facility] Last Admin: 09/02/19 09:17 Dose: 20 mg Gabapentin (Neurontin Cap(*)) 300 mg PO TID [facility] Last Admin: 09/02/19 13:25 Dose: 300 mg Insulin Human Lispro (Humalog*) 0 units SUBCUT [facility]; Protocol Last Admin: 09/02/19 13:26 Dose: 1 units Lisinopril (Prinivil Tab*) 40 mg PO DAILY [facility] Last Admin: 09/02/19 09:19 Dose: 40 mg Metoprolol Tartrate (Lopressor Iv*) 5 mg IV Q6H PRN PRN Reason: HEART RATE/PULSE GREATER THAN: Last Admin: 09/02/19 10:32 Dose: 5 mg Metoprolol Tartrate (Lopressor Tab*) 25 mg PO Q8H [facility] Last Admin: 09/02/19 13:26 Dose: 25 mg Multivitamins/Minerals (Theragran/Minerals Tab*) 1 tab PO DAILY [facility] Last Admin: 09/02/19 09:19 Dose: 1 tab Pantoprazole Sodium (Protonix Tab*) 40 mg PO DAILY [facility] Last Admin: 09/02/19 09:17 Dose: 40 mg Vital Signs - 8 hr 02/23/20 02/23/20 02/23/20 08:00 09:19 11:31 Temperature 97.1 F Pulse Rate 98 Respiratory 20 19 19 Rate Blood Pressure 113/71 (mmHg) O2 Sat by Pulse 100 Oximetry 09/02/19 09/02/19 13:25 15:02 Temperature Pulse Rate Respiratory 19 17 Rate Blood Pressure (mmHg) O2 Sat by Pulse Oximetry Oxygen Devices in Use Now: Nasal Cannula Appearance: alert, sitting up in the chair, well appearing Eyes: No Scleral Icterus Ears/Nose/Mouth/Throat: NL Teeth, Lips, Gums Neck: NL Appearance and Movements; NL JVP Respiratory: Symmetrical Chest Expansion and Respiratory Effort Cardiovascular: - - irregularly irregular with no murmurs Abdominal: NL Sounds; No Tenderness; No Distention Lymphatic: No Cervical Adenopathy Extremities: No Edema Skin: No Rash or Ulcers Result Diagrams: 09/01/19 05:04 09/02/19 06:30 Microbiology and Other Data: Microbiology 08/31/19 14:10 Nasal Screen MRSA (PCR) - Final Nasal Mrsa Not Detected Assess/Plan/Problems-Billing Assessment: This is a 78 year old woman with history of HTN who presented to the ED on 08/31 with days of palpitations, chest pain, and SOB and was found to be in afib with RVR with pleural effusions and acute hypoxic respiratory failure - Patient Problems (1) Atrial fibrillation with RVR Current Visit: Yes Status: Acute Code(s): I48.91 - UNSPECIFIED ATRIAL FIBRILLATION SNOMED Code(s): 550102680207210 Comment: cardiology was consulted and switched cardizem drip to atenolol unfortunately she is on max dose and still not rate controlled, so I am switching her to metoprolol q8 for more ability to titrate it continue eliquis TTE showed LA dilation; likely cause of new onset afib CTA negative for PE (2) Acute respiratory failure with hypoxia Current Visit: Yes Status: Acute Code(s): J96.01 - ACUTE RESPIRATORY FAILURE WITH HYPOXIA SNOMED Code(s): 37586674 Comment: improving, now weaned down to 2L (initially required vapotherm at admission) baseline O2 requirement = 0 effusions were likely related to afib with rvr continue lasix 20 mg daily Status and Disposition: still requiring O2; rate still not controlled
[2019-09-02] MEDS: Metoprolol Tartrate TAB* 25 MG PO SCH (20:57)
[2019-09-03 06:21] LABS: BUN/Creatinine Ratio 22.9 (8-20); Calcium 10.1 mg/dL (8.6-10.3); EGFR African American 67.8 (>60); EGFR Non-African American 56.1 (>60); Potassium 3.9 mmol/L (3.5-5.0)
[2019-09-03] MEDS: Insulin LISPRO* 1 UNITS UNIT SUBCUT SCH ×2 (08:12→12:12)
[2019-09-03] MEDS: Cholecalciferol TAB* 1000 UNITS PO SCH (09:00)
[2019-09-03] MEDS: Furosemide TAB* 20 MG PO SCH (09:00)
[2019-09-03] MEDS: Pantoprazole TAB * 40 MG TAB PO SCH (09:00)
[2019-09-03] MEDS: Metoprolol Tartrate TAB* 25 MG PO SCH (09:00)
[2019-09-03] MEDS: Lisinopril TAB* 10 MG PO SCH (09:00)
[2019-09-03] MEDS: Gabapentin CAP(*) 300 MG PO SCH ×3 (09:01→20:06)
[2019-09-03] MEDS: DULoxetine DR CAP* 20 MG CAP.DR PO SCH (09:02)
[2019-09-03] MEDS: Multivitamins/Minerals TAB PO SCH (09:02)
[2019-09-03] MEDS: Apixaban* 5 MG TAB PO SCH ×2 (09:02→20:06)
--- NOTE | 2019-09-03 10:44 | PN ---
Subjective Date of Service: 09/03/19 - Newly found AF with RVR, Right sided HF Interval History: No events last night, patient continues to have + night sweats, chills, intermittent palpitations, [place]IM[place]. Patient's daughter who translates for patient states her breathing has improved. Patient immigrated from [facility] after the war and resides with her daughter who is her primary bi lead. + dry cough., no chest pain. Medications Active Medications: Apixaban (Eliquis*) 5 mg PO BID [facility] Last Admin: 09/03/19 09:02 Dose: 5 mg Benzonatate (Tessalon Cap*) 100 mg PO TID PRN PRN Reason: COUGH Cholecalciferol (Vitamin D Tab*) 1,000 units PO DAILY [facility] Last Admin: 09/03/19 09:00 Dose: 1,000 units Dextrose (D50w Syringe 50 Ml*) 12.5 gm IV PUSH .FOR FS < 60 - SS PRN PRN Reason: FS < 60 Duloxetine HCl (Cymbalta Cap*) 40 mg PO DAILY [facility] Last Admin: 09/03/19 09:02 Dose: 40 mg Furosemide (Lasix Tab*) 20 mg PO DAILY [facility] Last Admin: 09/03/19 09:00 Dose: 20 mg Gabapentin (Neurontin Cap(*)) 300 mg PO TID [facility] Last Admin: 09/03/19 09:01 Dose: 300 mg Insulin Human Lispro (Humalog*) 0 units SUBCUT [facility]; Protocol Last Admin: 09/03/19 08:12 Dose: Not Given Metoprolol Succinate (Toprol Xl Tab*) 50 mg PO BID [facility] Metoprolol Tartrate (Lopressor Iv*) 5 mg IV Q6H PRN PRN Reason: HEART RATE/PULSE GREATER THAN: Last Admin: 09/02/19 23:09 Dose: 5 mg Multivitamins/Minerals (Theragran/Minerals Tab*) 1 tab PO DAILY [facility] Last Admin: 09/03/19 09:02 Dose: 1 tab Pantoprazole Sodium (Protonix Tab*) 40 mg PO DAILY [facility] Last Admin: 09/03/19 09:00 Dose: 40 mg Objective Vital Signs: Temp Pulse Resp BP Pulse Ox 97.4 F 97 16 126/56 98 09/03/19 07:27 09/03/19 07:27 09/03/19 09:01 09/03/19 07:27 09/03/19 07:27 Oxygen Devices in Use Now: Nasal Cannula Appearance: nad, pleasant. sitting in chair Ears/Nose/Mouth/Throat: Clear Oropharnyx, Mucous Membranes Moist Neck: Trachea Midline Respiratory: Symmetrical Chest Expansion and Respiratory Effort, - - decreased breath sound in right base. Cardiovascular: - - irregularly irregular, no significant murmur Abdominal: NL Sounds; No Tenderness; No Distention Extremities: No Edema Skin: No Rash or Ulcers Neurological: Alert and Oriented x 3 Lines/Tubes/Other Access: Clean, Dry and Intact Peripheral IV Laboratory Results: 09/01/19 05:04 09/03/19 05:43 INR (Anticoag Therapy) 1.11 (0.82-1.09) H 08/31/19 10:06 Total Bilirubin 0.40 mg/dL (0.2-1.0) 08/31/19 10:06 AST 19 U/L (13-39) 08/31/19 10:06 ALT 19 U/L (7-52) 08/31/19 10:06 Alkaline Phosphatase 47 U/L (34-104) 08/31/19 10:06 B-Natriuretic Peptide 534 pg/mL (<=100) H 08/31/19 10:06 Total Protein 7.3 g/dL (6.4-8.9) 08/31/19 10:06 Albumin 4.3 g/dL (3.2-5.2) 08/31/19 10:06 Globulin 3.0 g/dL (2-4) 08/31/19 10:06 Albumin/Globulin Ratio 1.4 (1-3) 08/31/19 10:06 TSH 2.40 mcIU/mL (0.34-5.60) 08/31/19 10:06 08/31/19 10:06 Troponin I 0.01 Laboratory Results - last 24 hr 09/02/19 09/02/19 09/02/19 11:32 16:14 19:40 Sodium Potassium Chloride Carbon Dioxide Anion Gap BUN Creatinine Est GFR ( Amer) Est GFR (Non-Af Amer) BUN/Creatinine Ratio Glucose POC Glucose (mg/dL) 195 H 72 259 H Glucose Meter Confirm Calcium 09/02/19 09/02/19 09/03/19 23:14 23:29 00:51 Sodium Potassium Chloride Carbon Dioxide Anion Gap BUN Creatinine Est GFR ( Amer) Est GFR (Non-Af Amer) BUN/Creatinine Ratio Glucose POC Glucose (mg/dL) 53 L 143 H Glucose Meter Confirm 66 L Calcium 09/03/19 09/03/19 05:43 07:53 Sodium 139 Potassium 3.9 Chloride 106 Carbon Dioxide 24 Anion Gap 9 BUN 22 Creatinine 0.96 H Est GFR ( Amer) 67.8 Est GFR (Non-Af Amer) 56.1 BUN/Creatinine Ratio 22.9 H Glucose 168 H POC Glucose (mg/dL) 128 H Glucose Meter Confirm Calcium 10.1 Diagnostic Imaging: Exam Date: 08/31/19 CTA CHEST IMPRESSION: 1. Questionable filling defect of the left atrial appendage. Correlate with echocardiography for thrombus. 2. No pulmonary embolus. 3. Pulmonary edema with moderate bilateral pleural effusions. 4. Reflux of contrast into the hepatic veins is a is suggestive of right-sided heart failure. 5. Atherosclerosis and coronary artery disease. Transthoracic Echocardiogram Study Date: Summary: - Left ventricle: The cavity size is normal. Wall thickness is normal. Systolic function is at the lower limits of normal. The estimated ejection fraction is 50-55%, LVEF difficult to estimate due to atrial fibrillation at time of study. Wall motion is normal; there are no regional wall motion abnormalities. - Right ventricle: The cavity size is mildly dilated. Systolic function is mildly reduced. - Left atrium: The atrium is moderately dilated. - Pulmonary arteries: Systolic pressure can not be accurately estimated. - No significant valvular abnormalities noted. EKG Data: admission ekg: afib 140 bpm, nonspecific st/t changes telemetry; Afib rate 100-140's Assessment/Plan #1 Newly found Afib with RVR; chads Vasc at least four given age, h/o HTN and gender now on Eliquis 5mg PO BID. Ventricular rates are still poorly controlled. LVEF 50-55%. Will d/c ACEI to allow for up titration of bblocker. Will convert Lopressor 50mg BID to Toprol 50mg/day. She already received Lisinopril today thus, will given 250mcg IV Digx1. She would likely benefit from RITA/CV however, given potential need to thorocentesis will consider this outpatient. For now will aggressively pursue lower her rates. #2 Decompensated DHF; + hepatic congestion and + pleural effusions. On PO Lasix. Breathing effort has improved per patient and her daughter. To have updated CXR. Of note she continues to c/o nighttime chills/sweats. Her daughter states on 08/01/2019 she saw PCP and had CXR and was placed on antibiotics. On 08/13/2019 had repeat CXR and antibiotics were changes. Will differ to primary team. May benefit from thorocentesis with fluid analysis if effusion still present. on exam it is at least moderate. #3 h/o HTN. Currently normotensive. Will d/c ACEI to optimize bblocker #4 Disposition Pending course. will d/c ACEI with the goal of optimizing AVN agents. Will Give IV dig today and optimize Toprol tomorrow given SBP 117 and she just received 40mg Lisinopril Attending: Sherif Chino
[2019-09-03 10:49] LABS: Digoxin 0.6 ng/ml (0.8-2.0)
[2019-09-03] MEDS ORDERED: Digoxin IV* 0.5 MG/2 ML AMP (0.25 MG/ML) IV SLOW PU ONE (12:30)
--- NOTE | 2019-09-03 13:36 | PN ---
Subjective Date of Service: 09/03/19 Interval History: Pt is seen with daughter at bedside. They're originally from [facility] and daughter is translating. Pt stated that breathing is "better". Apparently she has had h/ o intermittent night sweats x 1 year that daughter thought was related to "depression and anxiety"-many family members were affected by [place] war in the past. Pt has SOB and cough beginning 08/10/19 and was on a course of Z pack and then Augmentin Objective Active Medications: Apixaban (Eliquis*) 5 mg PO BID [facility] Last Admin: 09/03/19 09:02 Dose: 5 mg Benzonatate (Tessalon Cap*) 100 mg PO TID PRN PRN Reason: COUGH Cholecalciferol (Vitamin D Tab*) 1,000 units PO DAILY [facility] Last Admin: 09/03/19 09:00 Dose: 1,000 units Dextrose (D50w Syringe 50 Ml*) 12.5 gm IV PUSH .FOR FS < 60 - SS PRN PRN Reason: FS < 60 Duloxetine HCl (Cymbalta Cap*) 40 mg PO DAILY [facility] Last Admin: 09/03/19 09:02 Dose: 40 mg Furosemide (Lasix Tab*) 20 mg PO DAILY [facility] Last Admin: 09/03/19 09:00 Dose: 20 mg Gabapentin (Neurontin Cap(*)) 300 mg PO TID [facility] Last Admin: 09/03/19 09:01 Dose: 300 mg Insulin Human Lispro (Humalog*) 0 units SUBCUT [facility]; Protocol Last Admin: 09/03/19 12:12 Dose: 2 units Metoprolol Succinate (Toprol Xl Tab*) 50 mg PO BID [facility] Metoprolol Tartrate (Lopressor Iv*) 5 mg IV Q6H PRN PRN Reason: HEART RATE/PULSE GREATER THAN: Last Admin: 09/02/19 23:09 Dose: 5 mg Multivitamins/Minerals (Theragran/Minerals Tab*) 1 tab PO DAILY [facility] Last Admin: 09/03/19 09:02 Dose: 1 tab Pantoprazole Sodium (Protonix Tab*) 40 mg PO DAILY [facility] Last Admin: 09/03/19 09:00 Dose: 40 mg Vital Signs - 8 hr 09/03/19 09/03/19 09/03/19 07:27 08:00 09:01 Temperature 97.4 F Pulse Rate 97 Respiratory 18 18 16 Rate Blood Pressure 126/56 (mmHg) O2 Sat by Pulse 98 Oximetry 09/03/19 09/03/19 11:01 11:15 Temperature 98 F Pulse Rate 76 Respiratory 16 14 Rate Blood Pressure 126/60 (mmHg) O2 Sat by Pulse 99 Oximetry Oxygen Devices in Use Now: Nasal Cannula Appearance: 78 yo f in nAD, aAOx3 Eyes: No Scleral Icterus, PERRLA Ears/Nose/Mouth/Throat: NL Teeth, Lips, Gums, Mucous Membranes Moist Neck: NL Appearance and Movements; NL JVP, Trachea Midline Respiratory: Symmetrical Chest Expansion and Respiratory Effort, - - decreased breath sounds at RLL Cardiovascular: - - irregular, tachy, no murmur Abdominal: NL Sounds; No Tenderness; No Distention, No Hepatosplenomegaly Lymphatic: No Cervical Adenopathy Extremities: No Clubbing, Cyanosis, - - trace to +1 b/l ankle edema Skin: No Nodules or Sclerosis Neurological: Alert and Oriented x 3, NL Muscle Strength and Tone Result Diagrams: 09/01/19 05:04 09/03/19 05:43 Microbiology and Other Data: Microbiology 08/31/19 14:10 Nasal Screen MRSA (PCR) - Final Nasal Mrsa Not Detected Assess/Plan/Problems-Billing Assessment: This is a 78 year old woman with history of HTN who presented to the ED on 08/31 with days of palpitations, chest pain, and SOB and was found to be in afib with RVR with pleural effusions and acute hypoxic respiratory failure - Patient Problems (1) Atrial fibrillation with RVR Comment: appreciate cardiology consult, still poorly controlled a. fib. Switched to Toprol XL and given a dose of IV digoxin continue eliquis TTE showed LA dilation; likely cause of new onset afib CTA negative for PE (2) Acute respiratory failure with hypoxia Comment: improving, now weaned down to 2L (initially required vapotherm at admission) baseline O2 requirement = 0 effusions were likely related to afib with rvr-improving continue lasix 20 mg daily (3) Pleural effusion Comment: repeat CXR although not read offficially yet, does not appear to have an effusion that is significant enough for thoracentesis (4) Diabetes mellitus Comment: type 2, diet controlled at home Episodes of hypoglycemia last night. BG had been in 100-200's-will d/c ISS, change fingersticks to BID Status and Disposition: still requiring O2; rate still not controlled
[2019-09-03] MEDS: Metoprolol Succinate XL TAB* 50 MG PO SCH (20:06)
[2019-09-03] MEDS: Metoprolol Tartrate IV* 1 MG/ML 5 ML VIAL IV PRN (22:40)
[2019-09-04] MEDS ORDERED: Metoprolol Tartrate IV* 1 MG/ML 5 ML VIAL IV ONE (02:29)
[2019-09-04] MEDS ORDERED: Digoxin IV* 0.5 MG/2 ML AMP (0.25 MG/ML) IV SLOW PU ONE (03:49)
[2019-09-04 06:50] LABS: ABS Basophils 0.1 10^3/ul (0-0.2); ABS Eosinophils 0.1 10^3/ul (0-0.6); ABS Lymphocytes 1.9 10^3/ul (1.0-4.8); ABS Monocytes 0.6 10^3/ul (0-0.8); ABS Neutrophils 4.9 10^3/ul (1.5-7.7); Eosinophil % 1.1 %; Hematocrit 43 % (35-47); Hemoglobin 14.3 g/dL (12.0-16.0); Lymphocyte % 25.3 %; Mean Corpuscular HGB Conc 34 g/dL (31-36); Mean Corpuscular Hemoglobin 31 pg (27-31); Mean Corpuscular Volume 91 fL (80-97); Mean Platelet Volume 8.2 fL (7.4-10.4); Platelet Count 349 10^3/uL (150-450); Red Blood Count 4.67 10^6 /uL (3.70-4.87); Red Cell Distribution Width 14 % (10-15); White Blood Count 7.6 10^3/uL (3.5-10.8)
[2019-09-04 07:05] LABS: BUN/Creatinine Ratio 21.1 (8-20); C Reactive Protein 5.19 mg/L (<8.01); Calcium 10.4 mg/dL (8.6-10.3); EGFR African American 88.8 (>60); EGFR Non-African American 73.4 (>60); Potassium 3.8 mmol/L (3.5-5.0)
[2019-09-04] MEDS: Furosemide TAB* 20 MG PO SCH (08:33)
[2019-09-04] MEDS: Multivitamins/Minerals TAB PO SCH (08:33)
[2019-09-04] MEDS: Metoprolol Succinate XL TAB* 50 MG PO SCH (08:34)
[2019-09-04] MEDS: Cholecalciferol TAB* 1000 UNITS PO SCH (08:34)
[2019-09-04] MEDS: Pantoprazole TAB * 40 MG TAB PO SCH (08:35)
[2019-09-04] MEDS: Apixaban* 5 MG TAB PO SCH ×2 (08:35→21:02)
[2019-09-04] MEDS: Gabapentin CAP(*) 300 MG PO SCH ×3 (08:36→21:02)
[2019-09-04] MEDS: DULoxetine DR CAP* 20 MG CAP.DR PO SCH (08:37)
[2019-09-04] MEDS ORDERED: Metoprolol Succinate XL TAB* 100 MG PO SCH (09:00)
[2019-09-04] MEDS ORDERED: Metoprolol Succinate XL TAB* 50 MG PO ONE ×2 (09:56→10:30)
[2019-09-04] MEDS: Acetaminophen TAB* 325 MG PO PRN (11:57)
[2019-09-04] MEDS ORDERED: Morphine INJ* 2 MG/ML 1 ML SYRINGE (TWO MG - NEW SYRINGE VERSION) IV ONE (12:02)
--- NOTE | 2019-09-04 13:42 | PN ---
Subjective Date of Service: 09/04/19 Interval History: Pt c/o severe occipital headache today. Denies other symptoms; no weakness, no visual problems. Seen with daughter by the bedside Objective Active Medications: Acetaminophen (Tylenol Tab*) 650 mg PO Q4H PRN PRN Reason: PAIN-MILD/TEMP >/= 100.4 Last Admin: 09/04/19 11:57 Dose: 650 mg Apixaban (Eliquis*) 5 mg PO BID [facility] Last Admin: 09/04/19 08:35 Dose: 5 mg Benzonatate (Tessalon Cap*) 100 mg PO TID PRN PRN Reason: COUGH Cholecalciferol (Vitamin D Tab*) 1,000 units PO DAILY [facility] Last Admin: 09/04/19 08:34 Dose: 1,000 units Dextrose (D50w Syringe 50 Ml*) 12.5 gm IV PUSH .FOR FS < 60 - SS PRN PRN Reason: FS < 60 Digoxin (Lanoxin Tab*) 0.125 mg PO 1700 [facility] Duloxetine HCl (Cymbalta Cap*) 40 mg PO DAILY [facility] Last Admin: 09/04/19 08:37 Dose: 40 mg Gabapentin (Neurontin Cap(*)) 300 mg PO TID [facility] Last Admin: 09/04/19 08:36 Dose: 300 mg Metoprolol Succinate (Toprol Xl Tab*) 100 mg PO 0900,2100 [facility] Metoprolol Tartrate (Lopressor Iv*) 5 mg IV Q6H PRN PRN Reason: HEART RATE/PULSE GREATER THAN: Last Admin: 09/03/19 22:40 Dose: 5 mg Multivitamins/Minerals (Theragran/Minerals Tab*) 1 tab PO DAILY [facility] Last Admin: 09/04/19 08:33 Dose: 1 tab Pantoprazole Sodium (Protonix Tab*) 40 mg PO DAILY [facility] Last Admin: 09/04/19 08:35 Dose: 40 mg Vital Signs - 8 hr 09/04/19 09/04/19 09/04/19 08:00 08:36 10:36 Temperature 97.6 F Pulse Rate 94 Respiratory 16 16 18 Rate Blood Pressure 143/82 (mmHg) O2 Sat by Pulse 93 Oximetry 09/04/19 09/04/19 09/04/19 11:05 11:15 12:23 Temperature 97.9 F 97.9 F Pulse Rate 78 78 Respiratory 16 16 18 Rate Blood Pressure 135/61 135/61 (mmHg) O2 Sat by Pulse 96 96 Oximetry Oxygen Devices in Use Now: None Appearance: 78 yo F in nAD, aAOx3 Eyes: No Scleral Icterus, PERRLA Ears/Nose/Mouth/Throat: NL Teeth, Lips, Gums, Mucous Membranes Moist Neck: NL Appearance and Movements; NL JVP, Trachea Midline Respiratory: Symmetrical Chest Expansion and Respiratory Effort Cardiovascular: NL Sounds; No Murmurs; No JVD, - - irregular, tachy Abdominal: NL Sounds; No Tenderness; No Distention, No Hepatosplenomegaly Lymphatic: No Cervical Adenopathy Extremities: No Edema, No Clubbing, Cyanosis Skin: No Rash or Ulcers, No Nodules or Sclerosis Neurological: Alert and Oriented x 3, NL Muscle Strength and Tone Result Diagrams: 09/04/19 06:31 09/04/19 06:31 Microbiology and Other Data: Microbiology 08/31/19 14:10 Nasal Screen MRSA (PCR) - Final Nasal Mrsa Not Detected Assess/Plan/Problems-Billing Assessment: This is a 78 year old woman with history of HTN who presented to the ED on 08/31 with days of palpitations, chest pain, and SOB and was found to be in afib with RVR with pleural effusions and acute hypoxic respiratory failure - Patient Problems (1) Atrial fibrillation with RVR Comment: appreciate cardiology consult, still poorly controlled a. fib. Toprol XL-increased the dose, started on digoxin continue eliquis TTE showed LA dilation; likely cause of new onset afib CTA negative for PE but positive for poss LA thrombus(no cadrioversion recommended) (2) Acute respiratory failure with hypoxia Comment: resolved, CXR shows pleural effusions that are not big enough for thoracentesis hold Lasix (3) Pleural effusion Comment: repeat CXR shows effusions that are significant enough for thoracentesis (4) Diabetes mellitus Comment: type 2, diet controlled at home fingersticks to BID Status and Disposition: a. fib rate still not controlled
[2019-09-04] MEDS: Digoxin TAB* 0.125 MG PO SCH (17:02)
[2019-09-04] MEDS: Metoprolol Succinate XL TAB* 100 MG PO SCH (21:02)
[2019-09-05 07:19] LABS: CO2 Carbon Dioxide 20 mmol/L (22-32); Calcium 9.9 mg/dL (8.6-10.3); Chloride 105 mmol/L (101-111); Sodium 135 mmol/L (135-145)
[2019-09-05 07:21] LABS: Anion Gap 10 mmol/L (2-11)
[2019-09-05 07:25] LABS: BUN/Creatinine Ratio 26.7 (8-20); Blood Urea Nitrogen 20 mg/dL (6-24); EGFR African American 90.2 (>60); EGFR Non-African American 74.5 (>60); Glucose 140 mg/dL (70-100)
[2019-09-05] MEDS: Apixaban* 5 MG TAB PO SCH ×2 (08:14→22:01)
[2019-09-05] MEDS: Pantoprazole TAB * 40 MG TAB PO SCH (08:14)
[2019-09-05] MEDS: Metoprolol Succinate XL TAB* 100 MG PO SCH ×2 (08:15→22:01)
[2019-09-05] MEDS: Gabapentin CAP(*) 300 MG PO SCH ×3 (08:15→21:59)
[2019-09-05] MEDS: Cholecalciferol TAB* 1000 UNITS PO SCH (08:15)
[2019-09-05] MEDS: Multivitamins/Minerals TAB PO SCH (08:16)
[2019-09-05] MEDS: DULoxetine DR CAP* 20 MG CAP.DR PO SCH (10:55)
[2019-09-05] MEDS ORDERED: Furosemide TAB* 20 MG PO ONE (12:47)
[2019-09-05] MEDS ORDERED: Verapamil TAB* 80 MG PO ONE (13:44)
--- NOTE | 2019-09-05 13:54 | PN ---
Subjective Date of Service: 09/05/19 Interval History: Pt was SOB and anxious this AM and placed back o 02 at 2L. Denies headache. Daughter by the bedside translating. HR still 100-160 on telem Objective Active Medications: Acetaminophen (Tylenol Tab*) 650 mg PO Q4H PRN PRN Reason: PAIN-MILD/TEMP >/= 100.4 Last Admin: 09/04/19 11:57 Dose: 650 mg Apixaban (Eliquis*) 5 mg PO BID [facility] Last Admin: 09/05/19 08:14 Dose: 5 mg Benzonatate (Tessalon Cap*) 100 mg PO TID PRN PRN Reason: COUGH Cholecalciferol (Vitamin D Tab*) 1,000 units PO DAILY [facility] Last Admin: 09/05/19 08:15 Dose: 1,000 units Dextrose (D50w Syringe 50 Ml*) 12.5 gm IV PUSH .FOR FS < 60 - SS PRN PRN Reason: FS < 60 Digoxin (Lanoxin Tab*) 0.125 mg PO 1700 [facility] Last Admin: 09/04/19 17:02 Dose: 0.125 mg Duloxetine HCl (Cymbalta Cap*) 40 mg PO DAILY [facility] Last Admin: 09/05/19 10:55 Dose: 40 mg Furosemide (Lasix Tab*) 20 mg PO DAILY [facility] Gabapentin (Neurontin Cap(*)) 300 mg PO TID [facility] Last Admin: 09/05/19 08:15 Dose: 300 mg Metoprolol Succinate (Toprol Xl Tab*) 100 mg PO 0900,2100 [facility] Last Admin: 09/05/19 08:15 Dose: 100 mg Metoprolol Tartrate (Lopressor Iv*) 5 mg IV Q6H PRN PRN Reason: HEART RATE/PULSE GREATER THAN: Last Admin: 09/03/19 22:40 Dose: 5 mg Multivitamins/Minerals (Theragran/Minerals Tab*) 1 tab PO DAILY [facility] Last Admin: 09/05/19 08:16 Dose: 1 tab Pantoprazole Sodium (Protonix Tab*) 40 mg PO DAILY [facility] Last Admin: 09/05/19 08:14 Dose: 40 mg Vital Signs - 8 hr 09/05/19 09/05/19 09/05/19 07:25 08:00 08:15 Temperature 97.2 F Pulse Rate 49 Respiratory 16 16 15 Rate Blood Pressure 144/73 (mmHg) O2 Sat by Pulse 95 Oximetry Oxygen Devices in Use Now: None Appearance: 78 yo F in nAD, aAOx3 Eyes: No Scleral Icterus, PERRLA Ears/Nose/Mouth/Throat: NL Teeth, Lips, Gums, Mucous Membranes Moist Neck: NL Appearance and Movements; NL JVP, Trachea Midline Respiratory: Symmetrical Chest Expansion and Respiratory Effort, Clear to Auscultation Cardiovascular: - - irregular, tachy Abdominal: NL Sounds; No Tenderness; No Distention, No Hepatosplenomegaly Lymphatic: No Cervical Adenopathy Extremities: No Edema Skin: No Rash or Ulcers Neurological: Alert and Oriented x 3, NL Muscle Strength and Tone Result Diagrams: 09/04/19 06:31 09/05/19 07:37 Microbiology and Other Data: Microbiology 08/31/19 14:10 Nasal Screen MRSA (PCR) - Final Nasal Mrsa Not Detected Assess/Plan/Problems-Billing Assessment: This is a 78 year old woman with history of HTN who presented to the ED on 08/31 with days of palpitations, chest pain, and SOB and was found to be in afib with RVR with pleural effusions and acute hypoxic respiratory failure - Patient Problems (1) Atrial fibrillation with RVR Comment: appreciate cardiology consult, still poorly controlled a. fib. Toprol XL- at 100 mg BID, started on PO digoxin 09/04. D/w Dr. Page: will try Verapamil 40 mg x 1 continue eliquis TTE showed LA dilation CTA negative for PE but positive for poss LA thrombus(no cardioversion recommended) (2) Acute respiratory failure with hypoxia Comment: resolved, CXR shows pleural effusions that are not big enough for thoracentesis held Lasix due to mild hypercalcemia 09/04, will restart it today (3) Pleural effusion Comment: repeat CXR shows effusions that are not significant enough for thoracentesis (4) Diabetes mellitus Comment: type 2, diet controlled at home fingersticks to BID (5) DVT prophylaxis Comment: eliquis Status and Disposition: a. fib rate still not controlled
[2019-09-05] MEDS: Digoxin TAB* 0.125 MG PO SCH (18:26)
--- NOTE | 2019-09-05 20:27 | PN ---
Subjective Date of Service: 09/05/19 - CC: chest palps/pounding, Afib RVR Interval History: The patient was seen with her daughter. The patient intermittently feels palpitations/racing. Very SOB last night, did not sleep well. Now has O2 to use PRN. Per daughter her mother slept well this afternoon, thinks it might be related to "new medicine" (verapamil trial). Medications Active Medications: Acetaminophen (Tylenol Tab*) 650 mg PO Q4H PRN PRN Reason: PAIN-MILD/TEMP >/= 100.4 Last Admin: 09/04/19 11:57 Dose: 650 mg Apixaban (Eliquis*) 5 mg PO BID [facility] Last Admin: 09/05/19 08:14 Dose: 5 mg Benzonatate (Tessalon Cap*) 100 mg PO TID PRN PRN Reason: COUGH Cholecalciferol (Vitamin D Tab*) 1,000 units PO DAILY [facility] Last Admin: 09/05/19 08:15 Dose: 1,000 units Dextrose (D50w Syringe 50 Ml*) 12.5 gm IV PUSH .FOR FS < 60 - SS PRN PRN Reason: FS < 60 Duloxetine HCl (Cymbalta Cap*) 40 mg PO DAILY [facility] Last Admin: 09/05/19 10:55 Dose: 40 mg Furosemide (Lasix Tab*) 20 mg PO DAILY [facility] Gabapentin (Neurontin Cap(*)) 300 mg PO TID [facility] Last Admin: 09/05/19 14:24 Dose: 300 mg Metoprolol Succinate (Toprol Xl Tab*) 100 mg PO 0900,2100 [facility] Last Admin: 09/05/19 08:15 Dose: 100 mg Metoprolol Tartrate (Lopressor Iv*) 5 mg IV Q6H PRN PRN Reason: HEART RATE/PULSE GREATER THAN: Last Admin: 09/03/19 22:40 Dose: 5 mg Multivitamins/Minerals (Theragran/Minerals Tab*) 1 tab PO DAILY [facility] Last Admin: 09/05/19 08:16 Dose: 1 tab Pantoprazole Sodium (Protonix Tab*) 40 mg PO DAILY [facility] Last Admin: 09/05/19 08:14 Dose: 40 mg Verapamil HCl (Calan Tab*) 40 mg PO TID [facility] Objective Vital Signs: Temp Pulse Resp BP Pulse Ox 98.4 F 97 22 121/71 97 09/05/19 15:15 09/05/19 15:15 09/05/19 15:15 09/05/19 15:15 09/05/19 15:15 Vital Signs - 12 hr Temp Pulse Resp BP Pulse Ox 09/05/19 15:15 98.4 F 97 22 121/71 97 09/05/19 14:24 16 09/05/19 10:30 97.3 F 79 16 117/54 96 Oxygen Devices in Use Now: None Appearance: Lying flat in bed. Appears frail. Eyes: No Scleral Icterus, PERRLA Ears/Nose/Mouth/Throat: Clear Oropharnyx, Mucous Membranes Moist Neck: Trachea Midline Respiratory: Symmetrical Chest Expansion and Respiratory Effort, - - decreased breath sounds bases (lying flat on left side) Cardiovascular: - - irregularly irregular, trace SM USB. Abdominal: NL Sounds; No Tenderness; No Distention Extremities: No Edema Skin: No Rash or Ulcers, - - Moist, mildly diaphortic. Neurological: - - Answers questions through her daughter, follows commands. Lines/Tubes/Other Access: Clean, Dry and Intact Peripheral IV Laboratory Results: 09/04/19 06:31 09/05/19 07:37 INR (Anticoag Therapy) 1.11 (0.82-1.09) H 08/31/19 10:06 Total Bilirubin 0.40 mg/dL (0.2-1.0) 08/31/19 10:06 AST 19 U/L (13-39) 08/31/19 10:06 ALT 19 U/L (7-52) 08/31/19 10:06 Alkaline Phosphatase 47 U/L (34-104) 08/31/19 10:06 B-Natriuretic Peptide 534 pg/mL (<=100) H 08/31/19 10:06 Total Protein 7.3 g/dL (6.4-8.9) 08/31/19 10:06 Albumin 4.3 g/dL (3.2-5.2) 08/31/19 10:06 Globulin 3.0 g/dL (2-4) 08/31/19 10:06 Albumin/Globulin Ratio 1.4 (1-3) 08/31/19 10:06 TSH 2.40 mcIU/mL (0.34-5.60) 08/31/19 10:06 08/31/19 10:06 Troponin I 0.01 Diagnostic Imaging: Exam Date: 08/31/19 CTA CHEST IMPRESSION: 1. Questionable filling defect of the left atrial appendage. Correlate with echocardiography for thrombus. 2. No pulmonary embolus. 3. Pulmonary edema with moderate bilateral pleural effusions. 4. Reflux of contrast into the hepatic veins is a is suggestive of right-sided heart failure. 5. Atherosclerosis and coronary artery disease. Transthoracic Echocardiogram Study Date: Summary: - Left ventricle: The cavity size is normal. Wall thickness is normal. Systolic function is at the lower limits of normal. The estimated ejection fraction is 50-55%, LVEF difficult to estimate due to atrial fibrillation at time of study. Wall motion is normal; there are no regional wall motion abnormalities. - Right ventricle: The cavity size is mildly dilated. Systolic function is mildly reduced. - Left atrium: The atrium is moderately dilated. - Pulmonary arteries: Systolic pressure can not be accurately estimated. - No significant valvular abnormalities noted. EKG Data: admission ekg: afib 140 bpm, nonspecific st/t changes telemetry: after verapamil trial rates lowered to 100 at rest. Assessment/Plan 78 yo female with acute onset of racing heart last Tuesday, in AFib RVR. CT scan showed filling defect SHREYA, plan outlined by Dr Godinez was rate control, anticoagulation treatment for diastolic CHF and non urgent CV. The patient has been difficult to rate control, BB changed from atenolol to Metoprolol and increased from 50 mg to 200 mg/day and still tachycardic (with dig added). #1 Newly found Afib with RVR; chads Vasc at least four given age, h/o HTN and gender now on Eliquis 5mg PO BID. Difficulty with rate control, improved with short acting Verapamil today. Fully load verapamil, titrate BB down PRN. As thrombus seen on CT only, not confirmed with RITA and pectonate muscles might mimick, I would consider RITA if pt does not respond adequately to Verapamil. If IRTA + CV pursued, will likely need an antiarrhythmic, see below. #2 HFpEF; + hepatic congestion and + moderate pleural effusions. Pleural effusions may be contributing to difficulty with rate control. Will do better with rhythm rather than rate control to clear fluid, stabilize or improve CHF if/when it can be done safely. Diaphoresis long standing per daughter, large differential. If effusions tapped would check for TB, malignancy, full work up of the fluid. I discussed with the daughter that rate control would likely not allow her mother to achieve her prior functional status, daughter is aware. Presentation appears acute by history from the patient, but labs, CXR all suggestive a subacute process the patient was unaware of.
[2019-09-05] MEDS: Verapamil TAB* 80 MG PO SCH (22:02)
[2019-09-05] MEDS: Acetaminophen TAB* 325 MG PO PRN (22:03)
[2019-09-06] MEDS ORDERED: Potassium Chlor TAB* 20 MEQ TAB.ER PO ONE (08:38)
[2019-09-06] MEDS ORDERED: Verapamil TAB* 80 MG PO ONE (09:18)
[2019-09-06] MEDS: DULoxetine DR CAP* 20 MG CAP.DR PO SCH (09:51)
[2019-09-06] MEDS: Cholecalciferol TAB* 1000 UNITS PO SCH (09:55)
[2019-09-06] MEDS: Multivitamins/Minerals TAB PO SCH (09:56)
[2019-09-06] MEDS: Apixaban* 5 MG TAB PO SCH ×2 (09:57→20:29)
[2019-09-06] MEDS: Gabapentin CAP(*) 300 MG PO SCH ×3 (09:57→20:29)
[2019-09-06] MEDS: Pantoprazole TAB * 40 MG TAB PO SCH (09:57)
[2019-09-06] MEDS: Furosemide TAB* 20 MG PO SCH (09:58)
[2019-09-06] MEDS: Verapamil TAB* 80 MG PO SCH ×3 (10:14→20:28)
[2019-09-06] MEDS: Metoprolol Succinate XL TAB* 100 MG PO SCH (10:14)
--- NOTE | 2019-09-06 13:36 | PN ---
Subjective Date of Service: 09/06/19 Interval History: Pt had another episode of dyspnea and diaphoresis that daughter attributed to anxiety. then pt developed headache, then improved later on in AM. Currently feels well., no CP, no SOB Pt ambulated krista the hallway twice with her daughter today. HR under better control 10-120 Objective Active Medications: Acetaminophen (Tylenol Tab*) 650 mg PO Q4H PRN PRN Reason: PAIN-MILD/TEMP >/= 100.4 Last Admin: 09/05/19 22:03 Dose: 650 mg Apixaban (Eliquis*) 5 mg PO BID [facility] Last Admin: 09/06/19 09:57 Dose: 5 mg Benzonatate (Tessalon Cap*) 100 mg PO TID PRN PRN Reason: COUGH Cholecalciferol (Vitamin D Tab*) 1,000 units PO DAILY [facility] Last Admin: 09/06/19 09:55 Dose: 1,000 units Dextrose (D50w Syringe 50 Ml*) 12.5 gm IV PUSH .FOR FS < 60 - SS PRN PRN Reason: FS < 60 Duloxetine HCl (Cymbalta Cap*) 40 mg PO DAILY [facility] Last Admin: 09/06/19 09:51 Dose: 40 mg Furosemide (Lasix Tab*) 20 mg PO DAILY [facility] Last Admin: 09/06/19 09:58 Dose: 20 mg Gabapentin (Neurontin Cap(*)) 300 mg PO TID [facility] Last Admin: 09/06/19 09:57 Dose: 300 mg Metoprolol Succinate (Toprol Xl Tab*) 75 mg PO 0900,2100 [facility] Metoprolol Tartrate (Lopressor Iv*) 5 mg IV Q6H PRN PRN Reason: HEART RATE/PULSE GREATER THAN: Last Admin: 09/03/19 22:40 Dose: 5 mg Multivitamins/Minerals (Theragran/Minerals Tab*) 1 tab PO DAILY [facility] Last Admin: 09/06/19 09:56 Dose: 1 tab Pantoprazole Sodium (Protonix Tab*) 40 mg PO DAILY [facility] Last Admin: 09/06/19 09:57 Dose: 40 mg Verapamil HCl (Calan Tab*) 80 mg PO TID [facility] Vital Signs - 8 hr 09/06/19 09:57 Respiratory 16 Rate Oxygen Devices in Use Now: None Appearance: 78 yo F in nAD, AAOx3 Eyes: No Scleral Icterus, PERRLA Ears/Nose/Mouth/Throat: NL Teeth, Lips, Gums, Mucous Membranes Moist Neck: NL Appearance and Movements; NL JVP, Trachea Midline Respiratory: Symmetrical Chest Expansion and Respiratory Effort, Clear to Auscultation Cardiovascular: - - irregular, no murmur Abdominal: NL Sounds; No Tenderness; No Distention Lymphatic: No Cervical Adenopathy Extremities: No Edema Skin: No Rash or Ulcers, No Nodules or Sclerosis Neurological: Alert and Oriented x 3, NL Muscle Strength and Tone Result Diagrams: 09/04/19 06:31 09/06/19 00:52 Microbiology and Other Data: Microbiology 08/31/19 14:10 Nasal Screen MRSA (PCR) - Final Nasal Mrsa Not Detected Assess/Plan/Problems-Billing Assessment: This is a 78 year old woman with history of HTN who presented to the ED on 08/31 with days of palpitations, chest pain, and SOB and was found to be in afib with RVR with pleural effusions and acute hypoxic respiratory failure - Patient Problems (1) Atrial fibrillation with RVR Comment: appreciate cardiology consult, josué fib-better controlled Toprol XL- lower to 75 mg BID, digoxin d/c'd 09/05/, started Verapamil 09/05- increasing to 80 TID today continue Eliquis TTE showed LA dilation CTA negative for PE but positive for poss LA thrombus(no cardioversion recommended) (2) Acute respiratory failure with hypoxia Comment: resolved, CXR shows pleural effusions that are not big enough for thoracentesis cont daily Lasix , start potassium supplement (3) Pleural effusion Comment: repeat CXR shows effusions that are not significant enough for thoracentesis (4) Diabetes mellitus Comment: type 2, diet controlled at home fingersticks to BID (5) DVT prophylaxis Comment: eliquis Status and Disposition: Inpatient possible d/c tomorrow, daughter not interested in STR
[2019-09-06] MEDS: Metoprolol Succinate XL TAB* 50 MG PO SCH (20:26)
[2019-09-06] MEDS: Acetaminophen TAB* 325 MG PO PRN (20:28)
[2019-09-07 07:53] LABS: BUN/Creatinine Ratio 23.7 (8-20); Calcium 9.7 mg/dL (8.6-10.3); EGFR African American 88.8 (>60); EGFR Non-African American 73.4 (>60); Potassium 4.1 mmol/L (3.5-5.0)
[2019-09-07] MEDS: Metoprolol Succinate XL TAB* 50 MG PO SCH ×2 (09:08→20:57)
[2019-09-07] MEDS: Cholecalciferol TAB* 1000 UNITS PO SCH (09:09)
[2019-09-07] MEDS: DULoxetine DR CAP* 20 MG CAP.DR PO SCH (09:09)
[2019-09-07] MEDS: Potassium Chlor TAB* 20 MEQ TAB.ER PO SCH (09:09)
[2019-09-07] MEDS: Gabapentin CAP(*) 300 MG PO SCH ×3 (09:10→20:56)
[2019-09-07] MEDS: Apixaban* 5 MG TAB PO SCH ×2 (09:11→20:55)
[2019-09-07] MEDS: Furosemide TAB* 20 MG PO SCH (09:11)
[2019-09-07] MEDS: Multivitamins/Minerals TAB PO SCH (09:12)
[2019-09-07] MEDS: Verapamil TAB* 120 MG PO SCH ×3 (09:34→20:55)
[2019-09-07] MEDS: Pantoprazole TAB * 40 MG TAB PO SCH (10:07)
--- NOTE | 2019-09-07 14:58 | PN ---
Subjective Date of Service: 09/07/19 Interval History: Pt feels well, no CP or SOB. Seen with both of her daughters and a granddaughter by the bedside Granddaughter translating Objective Active Medications: Acetaminophen (Tylenol Tab*) 650 mg PO Q4H PRN PRN Reason: PAIN-MILD/TEMP >/= 100.4 Last Admin: 09/06/19 20:28 Dose: 650 mg Apixaban (Eliquis*) 5 mg PO BID [facility] Last Admin: 09/07/19 09:11 Dose: 5 mg Benzonatate (Tessalon Cap*) 100 mg PO TID PRN PRN Reason: COUGH Cholecalciferol (Vitamin D Tab*) 1,000 units PO DAILY [facility] Last Admin: 09/07/19 09:09 Dose: 1,000 units Dextrose (D50w Syringe 50 Ml*) 12.5 gm IV PUSH .FOR FS < 60 - SS PRN PRN Reason: FS < 60 Duloxetine HCl (Cymbalta Cap*) 40 mg PO DAILY [facility] Last Admin: 09/07/19 09:09 Dose: 40 mg Furosemide (Lasix Tab*) 20 mg PO DAILY [facility] Last Admin: 09/07/19 09:11 Dose: 20 mg Gabapentin (Neurontin Cap(*)) 300 mg PO TID [facility] Last Admin: 09/07/19 09:10 Dose: 300 mg Metoprolol Succinate (Toprol Xl Tab*) 75 mg PO 0900,2100 [facility] Last Admin: 09/07/19 09:08 Dose: 75 mg Metoprolol Tartrate (Lopressor Iv*) 5 mg IV Q6H PRN PRN Reason: HEART RATE/PULSE GREATER THAN: Last Admin: 09/03/19 22:40 Dose: 5 mg Multivitamins/Minerals (Theragran/Minerals Tab*) 1 tab PO DAILY [facility] Last Admin: 09/07/19 09:12 Dose: 1 tab Pantoprazole Sodium (Protonix Tab*) 40 mg PO DAILY [facility] Last Admin: 09/07/19 10:07 Dose: 40 mg Potassium Chloride (Klor Con Er Tab*) 20 meq PO DAILY [facility] Last Admin: 09/07/19 09:09 Dose: 20 meq Verapamil HCl (Calan Tab*) 120 mg PO TID [facility] Last Admin: 09/07/19 09:34 Dose: 120 mg Vital Signs - 8 hr 09/07/19 09/07/19 07:15 09:10 Temperature 97.6 F Pulse Rate 110 Respiratory 20 15 Rate Blood Pressure 139/88 (mmHg) O2 Sat by Pulse 97 Oximetry Oxygen Devices in Use Now: None Appearance: 78 yo f in nAD, aAOx3 Eyes: No Scleral Icterus, PERRLA Ears/Nose/Mouth/Throat: NL Teeth, Lips, Gums, Mucous Membranes Moist Neck: NL Appearance and Movements; NL JVP, Trachea Midline Respiratory: Symmetrical Chest Expansion and Respiratory Effort, - - mild crackles at RLL Cardiovascular: - - irrgular, no murmur Abdominal: NL Sounds; No Tenderness; No Distention, No Hepatosplenomegaly Lymphatic: No Cervical Adenopathy Extremities: No Edema Skin: No Rash or Ulcers, No Nodules or Sclerosis Neurological: Alert and Oriented x 3, NL Muscle Strength and Tone Result Diagrams: 09/04/19 06:31 09/07/19 07:20 Microbiology and Other Data: Microbiology 08/31/19 14:10 Nasal Screen MRSA (PCR) - Final Nasal Mrsa Not Detected Assess/Plan/Problems-Billing Assessment: This is a 78 year old woman with history of HTN who presented to the ED on 08/31 with days of palpitations, chest pain, and SOB and was found to be in afib with RVR with pleural effusions and acute hypoxic respiratory failure - Patient Problems (1) Atrial fibrillation with RVR Comment: appreciate cardiology consult, a. fib-better controlled Toprol XL- lowered to 75 mg BID 09/06/19, digoxin d/c'd 09/05/19, started Verapamil 09/05-increasing fro,m 80 to 120 mg TID today, rate already improved from 120's to 70's. If it continues to be controlled with no significant sandi overnight, pt will be ready to go home tomorrow continue Eliquis TTE showed LA dilation CTA negative for PE but positive for poss LA thrombus(no cardioversion recommended) (2) Acute respiratory failure with hypoxia Comment: resolved, CXR shows pleural effusions that are not big enough for thoracentesis SOB due to CHF/pleural effusions related to A. fib with RVR cont daily Lasix , start potassium supplement (3) Pleural effusion Comment: repeat CXR shows effusions that are not significant enough for thoracentesis (4) Diabetes mellitus Comment: type 2, diet controlled at home fingersticks to BID (5) DVT prophylaxis Comment: eliquis Status and Disposition: Inpatient possible d/c tomorrow, daughter not interested in STR
[2019-09-07] MEDS: Acetaminophen TAB* 325 MG PO PRN (21:20)
[2019-09-07] MEDS: Ondansetron INJ* 2 MG/ML VIAL IV PRN (23:56)
[2019-09-08] MEDS: Melatonin 3 MG TAB PO PRN (01:22)
[2019-09-08] MEDS: Verapamil TAB* 120 MG PO SCH ×3 (08:07→20:50)
[2019-09-08] MEDS: DULoxetine DR CAP* 20 MG CAP.DR PO SCH (08:07)
[2019-09-08] MEDS: Potassium Chlor TAB* 20 MEQ TAB.ER PO SCH (08:07)
[2019-09-08] MEDS: Metoprolol Succinate XL TAB* 50 MG PO SCH ×2 (08:07→20:48)
[2019-09-08] MEDS: Gabapentin CAP(*) 300 MG PO SCH ×3 (08:08→20:50)
[2019-09-08] MEDS: Apixaban* 5 MG TAB PO SCH ×2 (08:09→20:50)
[2019-09-08] MEDS: Cholecalciferol TAB* 1000 UNITS PO SCH (08:09)
[2019-09-08] MEDS: Pantoprazole TAB * 40 MG TAB PO SCH (08:09)
[2019-09-08] MEDS: Multivitamins/Minerals TAB PO SCH (08:09)
[2019-09-08] MEDS: Furosemide TAB* 20 MG PO SCH (08:09)
--- NOTE | 2019-09-08 15:00 | PN ---
Subjective Date of Service: 09/08/19 Interval History: Ms. Rodriguez is feeling okay today. Information is obtained through the patient's caregiver. She reports continued short episodes of dizziness. Did not sleep well overnight. Caregiver is concerned about taking her home and wants her monitored in the hospital longer. No concerns from nursing. Family History: Unchanged from Admission Social History: Unchanged from Admission Past Medical History: Unchanged from Admission Objective Active Medications: Acetaminophen (Tylenol Tab*) 650 mg PO Q4H PRN PAIN-MILD/TEMP >/= 100.4 Apixaban (Eliquis*) 5 mg PO BID [facility] Benzonatate (Tessalon Cap*) 100 mg PO TID PRN COUGH Cholecalciferol (Vitamin D Tab*) 1,000 units PO DAILY [facility] Dextrose (D50w Syringe 50 Ml*) 12.5 gm IV PUSH .FOR FS < 60 - SS PRN FS < 60 Duloxetine HCl (Cymbalta Cap*) 40 mg PO DAILY [facility] Furosemide (Lasix Tab*) 20 mg PO DAILY [facility] Gabapentin (Neurontin Cap(*)) 300 mg PO TID [facility] Melatonin (Melatonin) 3 mg PO BEDTIME PRN SLEEP Metoprolol Succinate (Toprol Xl Tab*) 75 mg PO 0900,2100 [facility] Metoprolol Tartrate (Lopressor Iv*) 5 mg IV Q6H PRN HEART RATE/PULSE Multivitamins/Minerals (Theragran/Minerals Tab*) 1 tab PO DAILY [facility] Ondansetron HCl (Zofran Inj*) 4 mg IV Q8H PRN [facility]USE[facility] Pantoprazole Sodium (Protonix Tab*) 40 mg PO DAILY [facility] Potassium Chloride (Klor Con Er Tab*) 20 meq PO DAILY [facility] Verapamil HCl (Calan Tab*) 120 mg PO TID [facility] Vital Signs - 8 hr 09/08/19 09/08/19 09/08/19 07:15 08:08 11:15 Temperature 97.3 F 98.1 F Pulse Rate 66 61 Respiratory 18 18 16 Rate Blood Pressure 132/65 113/45 (mmHg) O2 Sat by Pulse 94 94 Oximetry Oxygen Devices in Use Now: None Appearance: Elderly female sitting in bed in NAD Ears/Nose/Mouth/Throat: Mucous Membranes Moist Neck: NL Appearance and Movements; NL JVP, Trachea Midline Respiratory: Symmetrical Chest Expansion and Respiratory Effort, Clear to Auscultation Cardiovascular: NL Sounds; No Murmurs; No JVD, - - Irregular Abdominal: NL Sounds; No Tenderness; No Distention Extremities: No Edema Neurological: - - Nonverbal Lines/Tubes/Other Access: Clean, Dry and Intact Peripheral IV Nutrition: Taking PO's Result Diagrams: 09/04/19 06:31 09/07/19 07:20 Assess/Plan/Problems-Billing Assessment: Ms. Rodriguez is a 78 yo F with PMH of HTN; who presented to the ED with palpitations, chest pain, and SOB and was found to be in afib with RVR with pleural effusions and acute hypoxic respiratory failure. - Patient Problems (1) Atrial fibrillation with RVR Code(s): I48.91 - UNSPECIFIED ATRIAL FIBRILLATION Comment: - Rate controlled - CHADS-VASc2 score is 4 - CTA negative for PE but positive for poss LA thrombus - Appreciate Cardiology consult; no cardioversion recommended - Continue metoprolol, verapamil, Eliquis (2) Acute heart failure with preserved ejection fraction (HFpEF) Code(s): I50.31 - ACUTE DIASTOLIC (CONGESTIVE) HEART FAILURE Comment: - Secondary to afib - Continue furosemide, metoprolol (3) Acute respiratory failure with hypoxia Code(s): J96.01 - ACUTE RESPIRATORY FAILURE WITH HYPOXIA Comment: - Resolved, sating well on RA - CXR shows pleural effusions (not big enough for thoracentesis) (4) Hypertension Code(s): I10 - ESSENTIAL (PRIMARY) HYPERTENSION Comment: - Normotensive - Continue furosemide, metoprolol, verapamil (5) Diabetes mellitus Code(s): E11.9 - TYPE 2 DIABETES MELLITUS WITHOUT COMPLICATIONS Comment: - Diet controlled (6) DVT prophylaxis Code(s): Z29.9 - ENCOUNTER FOR PROPHYLACTIC MEASURES, UNSPECIFIED Comment: - Eliquis (7) Full code status Code(s): Z78.9 - OTHER SPECIFIED HEALTH STATUS Comment: Status and Disposition: Inpatient. Anticipate d/c home when medically stable, likely tomorrow. Attending: Lux Morgan
[2019-09-08] MEDS: Acetaminophen TAB* 325 MG PO PRN (22:42)
[2019-09-08] MEDS: Ondansetron INJ* 2 MG/ML VIAL IV PRN (22:45)
[2019-09-09] MEDS ORDERED: Calcium Carbonate CHEW TAB* 500 MG (TUMS) PO PRN (00:20)
[2019-09-09] MEDS: Melatonin 3 MG TAB PO PRN (00:35)
[2019-09-09] MEDS: Potassium Chlor TAB* 20 MEQ TAB.ER PO SCH (08:35)
[2019-09-09] MEDS: Pantoprazole TAB * 40 MG TAB PO SCH (08:35)
[2019-09-09] MEDS: Metoprolol Succinate XL TAB* 50 MG PO SCH (08:35)
[2019-09-09] MEDS: Furosemide TAB* 20 MG PO SCH (08:35)
[2019-09-09] MEDS: Cholecalciferol TAB* 1000 UNITS PO SCH (08:36)
[2019-09-09] MEDS: Gabapentin CAP(*) 300 MG PO SCH ×2 (08:36→13:26)
[2019-09-09] MEDS: Multivitamins/Minerals TAB PO SCH (08:36)
[2019-09-09] MEDS: Verapamil TAB* 120 MG PO SCH ×2 (08:36→13:26)
[2019-09-09] MEDS: Apixaban* 5 MG TAB PO SCH (08:36)
[2019-09-09] MEDS: DULoxetine DR CAP* 20 MG CAP.DR PO SCH (08:36)
[2019-09-09 12:49] VITALS: BP 112/57
--- NOTE | 2019-09-09 20:46 | DS ---
CC: Dr. Alvina De La O * DISCHARGE SUMMARY: DATE OF ADMISSION: 08/31/19 DATE OF DISCHARGE: 09/09/19 PRIMARY CARE PROVIDER: Dr. Alvina De La O. ATTENDING PHYSICIAN: Dr. Lux Morgan.* (DICTATED BY KYLE KUMAR NP) PRIMARY DIAGNOSES: 1. New onset atrial fibrillation with rapid ventricular response. 2. Acute heart failure with preserved ejection fraction. 3. Acute hypoxic respiratory failure. SECONDARY DIAGNOSES: 1. Hypertension. 2. Diabetes mellitus type 2. STUDIES WHILE IN THE HOSPITAL: 1. Chest x-ray on 08/31/19 reads as findings most consistent with pulmonary edema. 2. Chest CTA on 08/31/19 reads as questionable filling defect of the left atrial appendage. Correlate with echocardiography for thrombus. No pulmonary embolus. Pulmonary edema with moderate bilateral pleural effusions. Reflux of contrast into the hepatic veins is suggestive of right-sided heart failure. Atherosclerosis and coronary artery disease. 3. EKG on 08/31/19 shows atrial fibrillation with a rate of 138. 4. Transthoracic echocardiogram on 08/31/19 reads as the left ventricular cavity size is normal. Wall thickness is normal. Systolic function is at the lower limits of normal. The estimated ejection fraction is 50% to 55%. LVEF difficult to estimate due to atrial fibrillation at the time of study. Wall motion is normal and there are no regional wall motion abnormalities. The right ventricular cavity size is mildly dilated. Systolic function is mildly reduced. The left atrium is moderately dilated. Systolic pressure in the pulmonary artery could not be accurately estimated. No significant valvular abnormalities noted. No prior echo for comparison. 5. Chest x-ray on 09/03/19 reads as no significant change in right larger than left dependant pleural effusions with proportion atelectasis. Mild pulmonary vascular congestion, interstitial edema with interval improvement. 6. Brain CT on 09/04/19 reads as no intracranial mass or hemorrhage. 7. Abdomen x-ray on 09/09/19 reads as large amount of stool throughout the length of the colon could be seen in the setting of constipation. CONSULTATIONS WHILE IN THE HOSPITAL: 1. Dr. Godinez from Cardiology. 2. Dr. Chino from Cardiology. 3. Dr. Page from Cardiology. HISTORY OF PRESENT ILLNESS AND HOSPITAL COURSE: Ms. Rodriguez is a 78-year-old female with past medical history of hypertension, diabetes, and depression, who presented to the emergency room on 08/31/19 with complaints of shortness of breath and chest pain. Please see the history and physical by Dr. Godinez for complete summary of the events leading up to this hospitalization. In short, the patient reported 3 days of worsening shortness of breath and chest pain, and so presented to the emergency room where she was found to be in new onset atrial fibrillation with rapid ventricular response. Imaging was notable for pulmonary edema and a questionable filling defect of the left atrial appendage. The patient was initiated on Vapotherm and admitted to the intensive care unit. The patient was able to be weaned off of Vapotherm the following day and was transferred out of the ICU on 09/01/19. She was started on a Cardizem drip and digoxin for rate control. Cardiology was consulted. The patient was started on gentle diuresis. Rate control was difficult to obtain with Cardizem, metoprolol, and digoxin. Ultimately, the patient was started on verapamil, to which she has responded well. At this point, heart rate has been controlled for at least 48 hours. Overnight last night, she was noted to have some short 2- second pauses while asleep. Family does express concern about intermittent feelings of dizziness, although these are noted when the patient stands up quickly. She did have a complaint of abdominal pain overnight, although abdomen x-ray was obtained as noted above with no acute findings. Pain has since subsided. The patient was at home with her daughter, who is agreeable to taking her back home. PHYSICAL EXAMINATION: On exam, the patient is awake, alert. Translation is through the daughter, who reports that the patient is oriented to self, place, and situation, which is her reported baseline. Heart rate is irregular. No murmurs, rubs or gallops. Lungs are clear to auscultation without rhonchi, wheezes or rubs. There is no peripheral edema. Abdomen is soft, nontender. Physical exam is otherwise benign. Ms. Rodriguez is stable for discharge. Most recent vitals are as follows: Temp 97.1, heart rate 68, respiratory rate 16, oxygen saturation 96% on room air, blood pressure 112/57. DISCHARGE MEDICATIONS: New: 1. Eliquis 5 mg p.o. b.i.d. 2. Furosemide 20 mg p.o. daily. 3. Metoprolol succinate 75 mg p.o. b.i.d. 4. Potassium chloride 20 mEq p.o. daily. 5. Verapamil 120 mg p.o. t.i.d. Continued: 1. Fosamax 70 mg p.o. weekly. 2. Tessalon 100 mg p.o. t.i.d. p.r.n. cough. 3. Cholecalciferol 1000 units p.o. daily. 4. Guaifenesin-codeine 10 mL p.o. q.8 hours p.r.n. cough. 5. Duloxetine 40 mg p.o. daily. 6. Gabapentin 300 mg p.o. t.i.d. 7. [place] 5/325 one tab p.o. q.6 hours p.r.n. pain. 8. Multivitamin 1 tab p.o. daily. 9. Omeprazole 20 mg p.o. daily. 10. Trazodone 50 mg p.o. bedtime. Discontinued: 1. Amlodipine. 2. Aspirin. 3. Augmentin. 4. Atenolol. 5. Lisinopril. DISCHARGE PLAN: Ms. Rodriguez will be discharged to home. Activity will be as tolerated. Diet will be regular as tolerated. Medications are noted above. The patient has been started on metoprolol and verapamil for rate control, which is sufficient at this time. For this reason, atenolol, which she was previously taking, has been discontinued. On these doses of verapamil and metoprolol, systolic blood pressure is typically in the 110s and so at this point, she should not resume amlodipine or lisinopril, which she was taking prior to admission. She has been started on Eliquis for anticoagulation and so she does not need to take aspirin any longer. Regarding diuresis, at this point I think it is romero for the patient to remain low-dose daily furosemide, though I do not think that she will necessarily need this and definitely going forward and so this will need to be reassessed in the outpatient setting. She will need to follow up with her primary care provider, an appointment has been made for 09/12/19 at 9 a.m. She should also follow up with Cardiology as an outpatient. She has seen Dr. Godinez, Dr. Chino, and Dr. Page while here in the hospital, so she can follow up with any one of them as an outpatient. She should return to the hospital or nearest emergency room for any worsening symptoms, shortness of breath, lightheadedness, dizziness, chest discomfort, high fevers, chills, night sweats, loss of consciousness or any other worrisome signs or symptoms. DISCHARGE CONDITION: Stable. DISCHARGE DISPOSITION: Home. This is a summarized report of a complex medical history and hospital stay. For further details, please see the entire medical record. TIME SPENT: Approximately 45 minutes was spent on this discharge. KYLE KUMAR, SENIOR COURTROOM CLERK [id number]/CPS #: [id number] VIRI
== END 2019-09-09 14:20 | disposition home or self-care (01) | DRG 308 ==
LOC: ED 09:55 → ICU 12:10 → MEDTELE 09-01 10:44
PROVIDERS: ADMIT Internal Medicine Critical Care Medicine; ATTEND Internal Medicine
DX: I48.91 Unspecified atrial fibrillation (principal); I50.31 Acute diastolic (congestive) heart failure; J96.01 Acute respiratory failure with hypoxia; I11.0 Hypertensive heart disease with heart failure; F32.9 Major depressive disorder, single episode, unspecified; E11.649 Type 2 diabetes mellitus with hypoglycemia without coma; R10.9 Unspecified abdominal pain; Z79.899 Other long term (current) drug therapy
CPT/HCPCS: 36415; 70450; 71045; 71046; 71275; 74019; 80048; 80053; 80162; 81003; 82947; 83605; 83735; 83880; 84443; 84484; 85025; 85379; 85610; 86140; 87641; 93005; 93306; 99285; A9270-GY; J1160; J1650; J1940; J2270; J2405; J3480; J3490; Q9967

== ENCOUNTER 2019-12-31 13:34 | Inpatient (IN) ==
[2019-12-31] MEDS ORDERED: Furosemide 20 mg/2 ml IV VIAL IV SLOW PU ONE (14:22)
[2019-12-31 14:32] LABS: ABS Basophils 0.1 10^3/ul (0-0.2); ABS Eosinophils 0.3 10^3/ul (0-0.6); ABS Lymphocytes 1.5 10^3/ul (1.0-4.8); ABS Monocytes 1.3 10^3/ul (0-0.8); Eosinophil % 1.4 %; Hematocrit 40 % (35-47); Hemoglobin 13.1 g/dL (12.0-16.0); Lymphocyte % 7.1 %; Mean Corpuscular HGB Conc 33 g/dL (31-36); Mean Corpuscular Hemoglobin 28 pg (27-31); Mean Corpuscular Volume 87 fL (80-97); Mean Platelet Volume 8.5 fL (7.4-10.4); Platelet Count 255 10^3/uL (150-450); Red Blood Count 4.62 10^6 /uL (3.70-4.87); Red Cell Distribution Width 15 % (10-15); White Blood Count 21.1 10^3/uL (3.5-10.8)
[2019-12-31] MEDS ORDERED: Nitro 2% OINT (Nitroglycerin) 1 INCH/PAK TOPICAL ONE (14:43)
[2019-12-31 14:50] LABS: Troponin I 0.01 ng/mL (<0.03)
[2019-12-31 15:02] LABS: Albumin 4.5 g/dL (3.2-5.2); Albumin/Globulin Ratio 1.4 (1-3); BUN/Creatinine Ratio 18.3 (8-20); Calcium 9.7 mg/dL (8.6-10.3); EGFR African American 70.2 (>60); Globulin 3.3 g/dL (2-4); Magnesium 1.9 mg/dL (1.9-2.7); Potassium 3.9 mmol/L (3.5-5.0); Total Bilirubin 0.5 mg/dL (0.2-1.0); Total Protein 7.8 g/dL (6.4-8.9)
[2019-12-31 16:48] LABS: Urine Appearance Clear; Urine Bilirubin Negative (Negative); Urine Blood Negative (Negative); Urine Color Colorless; Urine Glucose Negative (Negative); Urine Ketones Negative (Negative); Urine Nitrite Negative (Negative); Urine Protein Negative (Negative); Urine Specific Gravity 1.004 (1.010-1.030); Urine Urobilinogen Negative (Negative)
[2019-12-31 17:46] LABS: C Reactive Protein 73.49 mg/L (<8.01)
[2019-12-31] MEDS ORDERED: Nitro Patch/OINT Remove PATCH TOPICAL ONE (21:15)
[2020-01-01 06:26] LABS: ABS Eosinophils 0.3 10^3/ul (0-0.6); ABS Lymphocytes 1.6 10^3/ul (1.0-4.8); ABS Monocytes 0.8 10^3/ul (0-0.8); Eosinophil % 3.1 %; Hematocrit 34 % (35-47); Hemoglobin 11.4 g/dL (12.0-16.0); Lymphocyte % 15.9 %; Mean Corpuscular HGB Conc 34 g/dL (31-36); Mean Corpuscular Hemoglobin 29 pg (27-31); Mean Corpuscular Volume 87 fL (80-97); Mean Platelet Volume 8.6 fL (7.4-10.4); Platelet Count 196 10^3/uL (150-450); Red Cell Distribution Width 15 % (10-15); White Blood Count 10.3 10^3/uL (3.5-10.8)
[2020-01-01 06:45] LABS: BUN/Creatinine Ratio 20.4 (8-20); Calcium 9.3 mg/dL (8.6-10.3); EGFR African American 59.1 (>60); EGFR Non-African American 48.8 (>60); Potassium 3.7 mmol/L (3.5-5.0)
[2020-01-01] MEDS: Aspirin EC 81 mg TAB.EC (enteric coated) PO SCH (09:33)
[2020-01-01] MEDS: DULoxetine DR 20 mg CAP PO SCH (09:33)
[2020-01-01] MEDS: Potassium Chlor 20 meq TAB.ER PO SCH (09:33)
[2020-01-01] MEDS: Multivitamins/Minerals TAB PO SCH (09:35)
[2020-01-01] MEDS: CMC:Rosuvastatin 20 mg TAB (NF) PO SCH (09:38)
[2020-01-01] MEDS ORDERED: Bumetanide IV 0.25 MG/ML 4 ml VIAL (1 mg) SLOW PUSH ONE (12:02)
[2020-01-01] MEDS ORDERED: Bumetanide IV 0.25 MG/ML 10 ml VIAL (2.5 mg) SLOW PUSH ONE (13:00)
[2020-01-02] MEDS: Aspirin EC 81 mg TAB.EC (enteric coated) PO SCH (09:06)
[2020-01-02] MEDS: Potassium Chlor 20 meq TAB.ER PO SCH (09:07)
[2020-01-02] MEDS: Multivitamins/Minerals TAB PO SCH (09:07)
[2020-01-02] MEDS: DULoxetine DR 20 mg CAP PO SCH (09:07)
[2020-01-02] MEDS: CMC:Rosuvastatin 20 mg TAB (NF) PO SCH (09:08)
[2020-01-02 10:25] LABS: BUN/Creatinine Ratio 27.5 (8-20); Calcium 9.4 mg/dL (8.6-10.3); EGFR Non-African American 59.5 (>60); Potassium 3.9 mmol/L (3.5-5.0)
[2020-01-02 19:15] VITALS: BP 103/62
== END 2020-01-02 17:30 | disposition home or self-care (01) | DRG 292 ==
LOC: ED 13:34 → MEDTELE 16:51
PROVIDERS: ADMIT Internal Medicine; ATTEND Internal Medicine